=== PATIENT | female | born 1945 | race Caucasian/White ===

== ENCOUNTER 2022-03-24 10:02 | Inpatient (IN) | payer MEDICARE, SELFPAY ==
[2022-03-24] VITALS (18 sets, daily range): BP systolic 105–144; BP diastolic 41–86; PULSE 70–83; RESP 14–18; TEMP 36.6–37.3; O2SAT 92–99; BMI 28.3; BMI 29.4
--- NOTE | 2022-03-24 10:55 | CRLHL7_ITS ---
For Patients: As a result of the Cures Act, medical imaging exams and procedure reports are released immediately into your electronic medical record. You may view this report before your referring provider. If you have questions, please contact your health care provider. INDICATION: Right lower quadrant pain x2 days, nausea and vomiting TECHNIQUE: CT abdomen and pelvis acquired with IV contrast 76 cc Isovue 370 COMPARISON: None FINDINGS: Lower chest: Small hiatal hernia. Liver: Unremarkable. Spleen: Unremarkable. Pancreas: Unremarkable. Gallbladder and bile ducts: Unremarkable. Kidneys: 2.5 centimeter right renal cyst. Adrenal glands: Unremarkable. GI/bowel: Fluid-filled dilated appendix up to 8 millimeters with a thickened wall adjacent inflammatory stranding with thickening of the adjacent cecum. Findings consistent with acute appendicitis. Vascular structures: Unremarkable. Lymph nodes: Unremarkable. Miscellaneous: Unremarkable. No free air or significant free fluid. Pelvic Organs: Unremarkable. Bones: Degenerative changes thoracolumbar spine. IMPRESSION: Fluid-filled dilated appendix up to 3 millimeters with a thickened wall and adjacent inflammatory stranding with thickening of the adjacent cecum. Findings consistent with acute appendicitis. Small hiatal hernia. Dictated by Montana Velasco MD @ 03/24/2022 12:26:12 PM Please note that all CT scans at this facility use dose modulation, iterative reconstruction, and/or weight-based dosing when appropriate to reduce radiation dose to as low as reasonably achievable. Dictated by: Montana Velasco MD @ 03/24/2022 12:29:49 (Electronically Signed)
--- NOTE | 2022-03-24 10:57 | ED.ABDPAIN ---
HPI - Abdominal Pain General Chief Complaint: Abdominal Pain Stated Complaint: Abdominal pain, nausea Time Seen by Provider: 03/24/22 10:39 History of Present Illness HPI narrative: This 76-year-old female comes in reporting right lower quadrant abdominal pain that began 2 days ago. She states the pain is much worse today. She did have some nausea and vomiting throughout this time but does not have any diarrhea. She did not measure her temperature but wondered if she was febrile at one point. Prior to this she is in good health. She states that the pain is constant and worse with movement. She did not sleep well last night because of pain. Related Data Home Medications Medication Instructions Recorded Confirmed escitalopram oxalate 10 mg tablet mg 03/24/22 losartan 100 tab 03/24/22 mg-hydrochlorothiazide 12.5 mg tablet omeprazole 20 mg capsule,delayed mg 03/24/22 release simvastatin 20 mg tablet mg 03/24/22 Allergies Allergy/AdvReac Type Severity Reaction Status Date / Time avocado Allergy Verified 03/24/22 10:15 codeine Allergy Verified 03/24/22 10:15 cortisone Allergy Verified 03/24/22 10:15 erythromycin base Allergy Verified 03/24/22 10:15 penicillin G Allergy Verified 03/24/22 10:15 Sulfa (Sulfonamide Allergy Verified 03/24/22 10:15 Antibiotics) tetracycline Allergy Verified 03/24/22 10:15 Review of Systems Status of ROS Reports: 10 or more systems reviewed and unremarkable except as noted in History and below Narrative Constitutional: No fevers, no weight gain or loss. Eyes: No discharge. No vision changes. HENT: No congestion, no sore throat, no ear pain. Cardiovascular: No chest pain, no palpitations. Respiratory: No shortness of breath, no wheezes, no cough. Gastrointestinal: Abdominal pain with nausea and vomiting as described above. No diarrhea. Genitourinary: No dysuria, no hematuria. Musculoskeletal: Normal range of motion. Skin: No rashes, no pruritis. Neurological: No dizziness, weakness, sensory change, speech change. Endo/Heme/Allergies: No bruising or bleeding. No polydipsia. Pysch: no suicidality, no anxiety, no insomnia. All other systems reviewed and are negative. [facility] Medical History (Updated 03/24/22 @ 12:48 by Isael Mazariegos MD) Asthma Surgical History (Updated 03/24/22 @ 10:16 by Roberta Kuo RN) History of knee replacement Social History Smoking Status: Never smoker Do you use any of these nicotine containing products: None Second hand tobacco smoke exposure: No How often do you have a drink containing alcohol: monthly or less How many standard drinks containing alcohol do you have on a typical day: 1 or 2 How often do you have six or more drinks on one occasion: Less than monthly AUDIT-C Alcohol total score: 2 Non-prescribed substance use: denies use service: No Exam Narrative: Exam Narrative: Constitutional: Well-developed, well-nourished, no acute distress. HEENT: Normocephalic, atraumatic. Neck: Normal range of motion. Nontender. Supple. Heart: Regular. No murmurs. Normal rate. Intact distal pulses. Lungs: Clear to auscultation. No chest discomfort. No wheezes, rhonchi, or rales. Abdomen: Decreased bowel sounds. Tenderness focused in the right lower quadrant. Rovsing sign is positive. Rebound tenderness is present. Genitalia: Deferred. Back: No midline tenderness. Normal range of motion. Extremities: Normal range of motion. No injury. Skin: Intact. No rash. Warm. No erythema or pallor. Neurologic: No altered sensation. No weakness. Alert and oriented. Psychiatric: No suicidality. No anxiety or depression. No insomnia. Nursing notes and vitals signs are reviewed. Const: Vital Signs, click to edit/add: Vital Signs - 24 hr 03/24/22 10:08 Temperature 98.2 F Pulse Rate [Right Pulse Oximeter] 83 Respiratory Rate 18 Blood Pressure [Ri ght Upper Arm] 144/64 H Pulse Oximetry 98 Oxygen Delivery Me thod Room Air Course Vital Signs Vital signs: Initial Vital Signs Temperature 98.2 F 03/24/22 10:08 Temperature Source Temporal Artery Scan 03/24/22 10:08 Pulse Rate 83 03/24/22 10:08 Pulse Rhythm 03/24/22 10:08 Pulse Strength 3+ Normal 03/24/22 10:08 Respiratory Rate 18 03/24/22 10:08 Blood Pressure 144/64 H 03/24/22 10:08 Blood Pressure Mean 90 03/24/22 10:08 Blood Pressure Position Sitting 03/24/22 10:08 Pulse Oximetry 98 03/24/22 10:08 Oxygen Delivery Method 03/24/22 10:08 Vital Signs Temperature 98.2 F 03/24/22 10:08 Pulse Rate 83 03/24/22 10:08 Respiratory Rate 18 03/24/22 10:08 Blood Pressure 144/64 H 03/24/22 10:08 Pulse Oximetry 98 03/24/22 10:08 Oxygen Delivery Method 03/24/22 10:08 Temperature 98.2 F 03/24/22 10:08 Pulse Rate 83 03/24/22 10:08 Respiratory Rate 18 03/24/22 10:08 Blood Pressure 144/64 H 03/24/22 10:08 Pulse Oximetry 98 03/24/22 10:08 Oxygen Delivery Method 03/24/22 10:08 MDM - Abdominal Pain MDM Narrative Medical decision making narrative: This patient comes in with worsening pain as described above. The pain is in the abdomen and seems to be localized in the right lower quadrant. An IV was established where labs were drawn and the patient received a CT scan with contrast. This shows evidence of acute appendicitis. Her white count is around 14.5. The patient received an IV dose of Dilaudid which brought sufficient relief temporarily to her pain. Later another dose of Dilaudid was given. I did speak with the surgeon on-call, Dr. Santoro, who will make arrangements for appendectomy. The patient did receive an IV dose of ertapenem. Lab Data Labs: Lab Results 03/24/22 03/24/22 Range/Units 10:30 10:30 WBC 14.46 H (4.50-11.00) K/uL RBC 4.85 (4.00-5.20) m/uL Hgb 14.4 (12.0-16.0) gm/dL Hct 43.5 (33.0-51.0) % MCV 90 (80-100) fL MCH 30 (26-34) pg MCHC 33 (32-36) gm/dL RDW Coeff of Mark 13.5 (11.5-15.5) % Plt Count 259 (140-440) K/uL Neut % (Auto) 90.5 H (42.0-72.0) % Lymph % (Auto) 3.5 L (20-44) % [place] % (Auto) 5.7 (0.0-11.0) % Eos % (Auto) 0.0 (0.0-7.0) % Baso % (Auto) 0.1 (0.0-3.0) % Neut # (Auto) 13.10 H (1.7-7.0) K/uL Lymph # (Auto) 0.50 L (0.90-2.90) K/uL [place] # (Auto) 0.80 (0.00-0.90) K/UL Eos # (Auto) 0.00 (0.00-0.50) K/uL Baso # (Auto) 0.00 (0.00-0.30) K/uL Abs Immat Gran (auto) 0.03 (0.00-0.30) K/uL Sodium 134 L (135-149) mmol/L Potassium 3.6 (3.6-5.1) mmol/L Chloride 96 (96-114) mmol/L Carbon Dioxide 28 (20-32) mmol/L BUN 21 (7-30) mg/dL Creatinine 0.7 (0.5-1.5) mg/dL Estimated Creat Clear 38.44 Estimated GFR 90 ml/min Glucose 174 H (60-115) mg/dL Calcium 9.5 (8.4-10.6) mg/dL Total Bilirubin 2.0 H (0.1-1.5) mg/dL Direct Bilirubin 0.3 (0.0-0.5) mg/dL AST 32 (12-35) U/L ALT 59 H (4-35) U/L Alkaline Phosphatase 83 (40-150) U/L Total Protein 7.7 (6.0-8.3) g/dL Albumin 4.7 (3.3-5.0) g/dL Lipase 66 (23-300) U/L Imaging Data CT scan - abdomen: Radiologist's impression: Fluid-filled dilated appendix up to 3 millimeters with a thickened wall and adjacent inflammatory stranding with thickening of the adjacent cecum. Findings consistent with acute appendicitis. Small hiatal hernia. Discharge Plan Discharge Clinical Impression: Acute appendicitis Patient Disposition: Admitted As Inpatient Condition: Unchanged Prescriptions: No Action simvastatin 20 mg tablet Label Comments: TAKE ONE TABLET BY MOUTH AT BEDTIME omeprazole 20 mg capsule,delayed release(DR/EC) Label Comments: TAKE ONE TABLET BY MOUTH IN THE EVENING escitalopram oxalate 10 mg tablet Label Comments: TAKE 1 TABLET BY MOUTH EVERY DAY losartan-hydrochlorothiazide 100-12.5 mg tablet Label Comments: TAKE 1 TABLET BY MOUTH EVERY DAY Follow Up/Referrals: Mariangel Ly MD [Primary Care Provider] -
[2022-03-24] MEDS: HYDROmorphone 0.5 mg/0.5 ml inj IVP ×2 (11:02→13:13)
[2022-03-24] MEDS: ONDANSETRON 2 MG/ML inj 4 MG IVP (11:02)
[2022-03-24 11:04] LABS: Basophils Percent Auto 0.1 % (0.0-3.0); Hematocrit 43.5 % (33.0-51.0); Hemoglobin* 14.4 gm/dL (12.0-16.0); Immature Granulocytes Abs Auto 0.03 K/uL (0.00-0.30); Lymphocytes Percent Auto 3.5 % (20-44); Mean Corpuscular HGB Conc 33 gm/dL (32-36); Mean Corpuscular Hemoglobin 30 pg (26-34); Mean Corpuscular Volume 90 fL (80-100); Monocytes Percent Auto 5.7 % (0.0-11.0); Neutrophils Percent Auto 90.5 % (42.0-72.0); Platelet Count* 259 K/uL (140-440); RDW Coefficient of Variation % 13.5 % (11.5-15.5); Red Blood Count 4.85 m/uL (4.00-5.20); White Blood Count* 14.46 K/uL (4.50-11.00)
[2022-03-24 11:16] LABS: Albumin* 4.7 g/dL (3.3-5.0)
[2022-03-24 11:17] LABS: Chloride* 96 mmol/L (96-114); Potassium* 3.6 mmol/L (3.6-5.1); Sodium* 134 mmol/L (135-149)
[2022-03-24 11:19] LABS: Aspartate Amino Transferase* 32 U/L (12-35); Bilirubin Direct* 0.3 mg/dL (0.0-0.5); Carbon Dioxide* 28 mmol/L (20-32); Creatinine* 0.7 mg/dL (0.5-1.5); Est. Creatinine Clearance* 38.44; Estimated Glomerular Filt Rate 90 ml/min; Slide Review Reflex No; Total Protein* 7.7 g/dL (6.0-8.3)
[2022-03-24 11:20] LABS: Alanine Aminotransferase* 59 U/L (4-35); Alkaline Phosphatase* 83 U/L (40-150); Blood Urea Nitrogen* 21 mg/dL (7-30); Calcium* 9.5 mg/dL (8.4-10.6); Glucose* 174 mg/dL (60-115); Lipase* 66 U/L (23-300)
[2022-03-24 12:44] LABS: Appearance Urine Clear (Clear); Bilirubin Urine Negative (Negative); Blood Urine 1+ (Negative); Color Urine Yellow (Yellow); Glucose Urine Negative (Negative); Ketones Urine Negative (Negative); Leukocyte Esterase Urine Negative (Negative); Nitrite Urine Negative (Negative); Protein Urine Negative (Negative); Urobilinogen Urine 0.2 (0.2-1.0); pH Urine 6.5 (5.0-8.5)
--- NOTE | 2022-03-24 12:45 | ED.ABDPAIN ---
HPI - Abdominal Pain General Chief Complaint: Abdominal Pain Stated Complaint: Abdominal pain, nausea Time Seen by Provider: 03/24/22 10:39 Related Data Home Medications Medication Instructions Recorded Confirmed escitalopram oxalate 10 mg tablet mg 03/24/22 losartan 100 tab 03/24/22 mg-hydrochlorothiazide 12.5 mg tablet omeprazole 20 mg capsule,delayed mg 03/24/22 release simvastatin 20 mg tablet mg 03/24/22 Allergies Allergy/AdvReac Type Severity Reaction Status Date / Time avocado Allergy Verified 03/24/22 10:15 codeine Allergy Verified 03/24/22 10:15 cortisone Allergy Verified 03/24/22 10:15 erythromycin base Allergy Verified 03/24/22 10:15 penicillin G Allergy Verified 03/24/22 10:15 Sulfa (Sulfonamide Allergy Verified 03/24/22 10:15 Antibiotics) tetracycline Allergy Verified 03/24/22 10:15 [facility] Medical History (Updated 03/24/22 @ 12:48 by Isael Mazariegos MD) Asthma Surgical History (Updated 03/24/22 @ 10:16 by Roberta Kuo RN) History of knee replacement Social History Smoking Status: Never smoker Do you use any of these nicotine containing products: None Second hand tobacco smoke exposure: No How often do you have a drink containing alcohol: monthly or less How many standard drinks containing alcohol do you have on a typical day: 1 or 2 How often do you have six or more drinks on one occasion: Less than monthly AUDIT-C Alcohol total score: 2 Non-prescribed substance use: denies use service: No Exam Const: Vital Signs, click to edit/add: Vital Signs - 24 hr 03/24/22 10:08 Temperature 98.2 F Pulse Rate [Right Pulse Oximeter] 83 Respiratory Rate 18 Blood Pressure [Ri ght Upper Arm] 144/64 H Pulse Oximetry 98 Oxygen Delivery Me thod Room Air Course Vital Signs Vital signs: Initial Vital Signs Temperature 98.2 F 03/24/22 10:08 Temperature Source Temporal Artery Scan 03/24/22 10:08 Pulse Rate 83 03/24/22 10:08 Pulse Rhythm 03/24/22 10:08 Pulse Strength 3+ Normal 03/24/22 10:08 Respiratory Rate 18 03/24/22 10:08 Blood Pressure 144/64 H 03/24/22 10:08 Blood Pressure Mean 90 03/24/22 10:08 Blood Pressure Position Sitting 03/24/22 10:08 Pulse Oximetry 98 03/24/22 10:08 Oxygen Delivery Method 03/24/22 10:08 Vital Signs Temperature 98.2 F 03/24/22 10:08 Pulse Rate 83 03/24/22 10:08 Respiratory Rate 18 03/24/22 10:08 Blood Pressure 144/64 H 03/24/22 10:08 Pulse Oximetry 98 03/24/22 10:08 Oxygen Delivery Method 03/24/22 10:08 Temperature 98.2 F 03/24/22 10:08 Pulse Rate 83 03/24/22 10:08 Respiratory Rate 18 03/24/22 10:08 Blood Pressure 144/64 H 03/24/22 10:08 Pulse Oximetry 98 03/24/22 10:08 Oxygen Delivery Method 03/24/22 10:08 MDM - Abdominal Pain Lab Data Labs: Lab Results 03/24/22 03/24/22 03/24/22 Range/Units 10:30 10:30 12:19 WBC 14.46 H (4.50-11.00) K/uL RBC 4.85 (4.00-5.20) m/uL Hgb 14.4 (12.0-16.0) gm/dL Hct 43.5 (33.0-51.0) % MCV 90 (80-100) fL MCH 30 (26-34) pg MCHC 33 (32-36) gm/dL RDW Coeff of Mark 13.5 (11.5-15.5) % Plt Count 259 (140-440) K/uL Neut % (Auto) 90.5 H (42.0-72.0) % Lymph % (Auto) 3.5 L (20-44) % [place] % (Auto) 5.7 (0.0-11.0) % Eos % (Auto) 0.0 (0.0-7.0) % Baso % (Auto) 0.1 (0.0-3.0) % Neut # (Auto) 13.10 H (1.7-7.0) K/uL Lymph # (Auto) 0.50 L (0.90-2.90) K/uL [place] # (Auto) 0.80 (0.00-0.90) K/UL Eos # (Auto) 0.00 (0.00-0.50) K/uL Baso # (Auto) 0.00 (0.00-0.30) K/uL Abs Immat Gran (auto) 0.03 (0.00-0.30) K/uL Sodium 134 L (135-149) mmol/L Potassium 3.6 (3.6-5.1) mmol/L Chloride 96 (96-114) mmol/L Carbon Dioxide 28 (20-32) mmol/L BUN 21 (7-30) mg/dL Creatinine 0.7 (0.5-1.5) mg/dL Estimated Creat Clear 38.44 Estimated GFR 90 ml/min Glucose 174 H (60-115) mg/dL Calcium 9.5 (8.4-10.6) mg/dL Total Bilirubin 2.0 H (0.1-1.5) mg/dL Direct Bilirubin 0.3 (0.0-0.5) mg/dL AST 32 (12-35) U/L ALT 59 H (4-35) U/L Alkaline Phosphatase 83 (40-150) U/L Total Protein 7.7 (6.0-8.3) g/dL Albumin 4.7 (3.3-5.0) g/dL Lipase 66 (23-300) U/L Urine Color Yellow (Yellow) Urine Appearance Clear (Clear) Urine pH 6.5 (5.0-8.5) Ur Specific [place] 1.020 (1.000-1.030) Urine Protein Negative (Negative) Urine Glucose (UA) Negative (Negative) Urine Ketones Negative (Negative) Urine Blood 1+ A (Negative) Urine Nitrite Negative (Negative) Urine Bilirubin Negative (Negative) Urine Urobilinogen 0.2 (0.2-1.0) Ur Leukocyte Esterase Negative (Negative) Urine RBC 0-2 (0-2) Urine WBC 0-2 (0-5) Ur Squamous Epith Cells None (None-Few) Urine Bacteria None (None) SARS-CoV-2 (PCR) (Negative) 03/24/22 Range/Units 12:36 WBC (4.50-11.00) K/uL RBC (4.00-5.20) m/uL Hgb (12.0-16.0) gm/dL Hct (33.0-51.0) % MCV (80-100) fL MCH (26-34) pg MCHC (32-36) gm/dL RDW Coeff of Mark (11.5-15.5) % Plt Count (140-440) K/uL Neut % (Auto) (42.0-72.0) % Lymph % (Auto) (20-44) % [place] % (Auto) (0.0-11.0) % Eos % (Auto) (0.0-7.0) % Baso % (Auto) (0.0-3.0) % Neut # (Auto) (1.7-7.0) K/uL Lymph # (Auto) (0.90-2.90) K/uL [place] # (Auto) (0.00-0.90) K/UL Eos # (Auto) (0.00-0.50) K/uL Baso # (Auto) (0.00-0.30) K/uL Abs Immat Gran (auto) (0.00-0.30) K/uL Sodium (135-149) mmol/L Potassium (3.6-5.1) mmol/L Chloride (96-114) mmol/L Carbon Dioxide (20-32) mmol/L BUN (7-30) mg/dL Creatinine (0.5-1.5) mg/dL Estimated Creat Clear Estimated GFR ml/min Glucose (60-115) mg/dL Calcium (8.4-10.6) mg/dL Total Bilirubin (0.1-1.5) mg/dL Direct Bilirubin (0.0-0.5) mg/dL AST (12-35) U/L ALT (4-35) U/L Alkaline Phosphatase (40-150) U/L Total Protein (6.0-8.3) g/dL Albumin (3.3-5.0) g/dL Lipase (23-300) U/L Urine Color (Yellow) Urine Appearance (Clear) Urine pH (5.0-8.5) Ur Specific [place] (1.000-1.030) Urine Protein (Negative) Urine Glucose (UA) (Negative) Urine Ketones (Negative) Urine Blood (Negative) Urine Nitrite (Negative) Urine Bilirubin (Negative) Urine Urobilinogen (0.2-1.0) Ur Leukocyte Esterase (Negative) Urine RBC (0-2) Urine WBC (0-5) Ur Squamous Epith Cells (None-Few) Urine Bacteria (None) SARS-CoV-2 (PCR) Negative SARS-CoV-2 (Negative) ECG Data Attestation: I personally reviewed and interpreted this ECG as follows: Interpretation: Normal sinus rhythm. Right bundle branch block. Rate 77 beats per minute. There are no ST or T-wave abnormalities. Discharge Plan Discharge Clinical Impression: Acute appendicitis Patient Disposition: Admitted As Inpatient Condition: Unchanged
--- NOTE | 2022-03-24 12:46 | W.PC.EDHO ---
Primary Language: Preferred Language: Orientation Status: [x] Alert & Oriented [] Slight Confusion [] Known Dx Dementia Transfers By: [x] Assist of 1 [] Assist of 2 [] Lift Active Medications Discontinued Medications Generic Name Dose Route Start Last Admin Trade Name Darcy PRN Reason Stop Dose Admin Hydromorphone HCl 0.5 mg 03/24/22 10:54 03/24/22 11:02 Hydromorphone 0.5 Mg/0.5 Ml Inj IVP 03/24/22 10:55 0.5 mg ONCE ONE Administration Ondansetron HCl 4 mg 03/24/22 10:54 03/24/22 11:02 Ondansetron 2 Mg/Ml Inj IVP 03/24/22 10:55 4 mg ONCE ONE Administration Description of Symptoms ED Triage Present Problem Here with abd pain started Tuesday at 4am has Description become worse. Reports burning and now severe pain on the right side. Nothing make it better. Female History Patient Pain Pain Description [abd] Sharp Pain Intensity [abd] 10 Pain Scale Used [abd] Numeric (1 - 10) IV Insertion/Site Date of IV Line Insertion [ 03/24/22 Left Antecubital] Oxygen Administration Pulse Oximetry 98 Oxygen Delivery Method Room Air
[2022-03-24 13:00] LABS: RBC Urine 0-2 (0-2); WBC Urine 0-2 (0-5)
[2022-03-24] MEDS: ERTAPENEM 1 GM in 0.9 % SODIUM CHLORIDE Mini-bag 100 ML IVPB (13:13)
[2022-03-24 13:38] LABS: SARS PCR* Negative SARS-CoV-2 (Negative)
--- NOTE | 2022-03-24 14:08 | P.GSCN_ITS ---
History of Present Illness Consult details Date Seen: 03/24/22 Consult date: 03/24/22 Narrative: The patient is a 76-year-old female who presents to the emergency department today with severe right lower quadrant pain. She states that she woke up at 4:00 a.m. 2 days ago with severe pain in her right lower abdomen. She states that her stomach ballooned up and the pain became more severe. Nothing makes the pain better but movement and the car ride here made it worse. With this she has had some loose stools as well as vomiting. She has not had a fever. She has no urinary symptoms. No chest pain or shortness of breath. She has never had anything like this previously. She has not eaten today. Review of Systems Status of ROS: Reports: 10 or more systems reviewed and unremarkable except as noted in History and below 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 She lives with her . Smoking Status: Never smoker Do you use any of these nicotine containing products: None Second hand tobacco smoke exposure: No How often do you have a drink containing alcohol: monthly or less How many standard drinks containing alcohol do you have on a typical day: 1 or 2 How often do you have six or more drinks on one occasion: Less than monthly AUDIT-C Alcohol total score: 2 Non-prescribed substance use: denies use service: No Meds Home Medications and Allergies Home Medications Medication Instructions Recorded Confirmed Type escitalopram oxalate 10 mg tablet mg 03/24/22 History losartan 100 tab 03/24/22 History mg-hydrochlorothiazide 12.5 mg tablet omeprazole 20 mg capsule,delayed mg 03/24/22 History release simvastatin 20 mg tablet mg 03/24/22 History Allergies Allergy/AdvReac Type Severity Reaction Status Date / Time avocado Allergy Verified 03/24/22 10:15 codeine Allergy Verified 03/24/22 10:15 cortisone Allergy Verified 03/24/22 10:15 erythromycin base Allergy Verified 03/24/22 10:15 penicillin G Allergy Verified 03/24/22 10:15 Sulfa (Sulfonamide Allergy Verified 03/24/22 10:15 Antibiotics) tetracycline Allergy Verified 03/24/22 10:15 Exam Narrative: Exam Narrative: General appearance: Alert, cooperative, and in no distress Eyes: PERRLA, eye lids clear, and sclera white HENT Head: Normocephalic Ears: External ears normal Pulmonary: Clear to auscultation bilaterally Cardiovascular Heart: Regular rate and rhythm Extremities: warm and well perfused Gastrointestinal Abdominal: No scars. Somewhat distended. Tender on the right abdomen with significant guarding in the right lower quadrant. Musculoskeletal: Extremities: Upper: Both upper extremities have normal joint range of motion and intact strength. Lower: Both lower extremities have normal joint range of motion and intact strength. Skin: Normal skin color, texture, and turgor. No rashes or lesions. Neurologic: No focal deficits Psychiatric: Alert, oriented, cooperative, normal affect. Const: Vital Signs, click to edit/add: Vital Signs - 24 hr 03/24/22 10:08 Temperature 98.2 F Pulse Rate [Right Pulse Oximeter] 83 Respiratory Rate 18 Blood Pressure [Ri ght Upper Arm] 144/64 H Pulse Oximetry 98 Oxygen Delivery Me thod Room Air Results Labs Labs: Abnormal lab results 03/24/22 03/24/22 03/24/22 Range/Units 10:30 10:30 12:19 WBC 14.46 H (4.50-11.00) K/uL Neut % (Auto) 90.5 H (42.0-72.0) % Lymph % (Auto) 3.5 L (20-44) % Neut # (Auto) 13.10 H (1.7-7.0) K/uL Lymph # (Auto) 0.50 L (0.90-2.90) K/uL Sodium 134 L (135-149) mmol/L Glucose 174 H (60-115) mg/dL Total Bilirubin 2.0 H (0.1-1.5) mg/dL ALT 59 H (4-35) U/L Urine Blood 1+ A (Negative) Diabetes panel 03/24/22 Range/Units 10:30 Sodium 134 L (135-149) mmol/L Potassium 3.6 (3.6-5.1) mmol/L Chloride 96 (96-114) mmol/L Carbon Dioxide 28 (20-32) mmol/L BUN 21 (7-30) mg/dL Creatinine 0.7 (0.5-1.5) mg/dL Glucose 174 H (60-115) mg/dL Calcium 9.5 (8.4-10.6) mg/dL AST 32 (12-35) U/L ALT 59 H (4-35) U/L Alkaline Phosphatase 83 (40-150) U/L Total Protein 7.7 (6.0-8.3) g/dL Albumin 4.7 (3.3-5.0) g/dL Calcium panel 03/24/22 Range/Units 10:30 Calcium 9.5 (8.4-10.6) mg/dL Albumin 4.7 (3.3-5.0) g/dL Pituitary panel 03/24/22 Range/Units 10:30 Sodium 134 L (135-149) mmol/L Potassium 3.6 (3.6-5.1) mmol/L Chloride 96 (96-114) mmol/L Carbon Dioxide 28 (20-32) mmol/L BUN 21 (7-30) mg/dL Creatinine 0.7 (0.5-1.5) mg/dL Glucose 174 H (60-115) mg/dL Calcium 9.5 (8.4-10.6) mg/dL Adrenal panel 03/24/22 Range/Units 10:30 Sodium 134 L (135-149) mmol/L Potassium 3.6 (3.6-5.1) mmol/L Chloride 96 (96-114) mmol/L Carbon Dioxide 28 (20-32) mmol/L BUN 21 (7-30) mg/dL Creatinine 0.7 (0.5-1.5) mg/dL Glucose 174 H (60-115) mg/dL Calcium 9.5 (8.4-10.6) mg/dL Total Bilirubin 2.0 H (0.1-1.5) mg/dL AST 32 (12-35) U/L ALT 59 H (4-35) U/L Alkaline Phosphatase 83 (40-150) U/L Total Protein 7.7 (6.0-8.3) g/dL Albumin 4.7 (3.3-5.0) g/dL All other labs normal. Imaging Abdomen CT scan report/results: report reviewed (Diagnostic Imaging Report Patient: Nicole Vásquez LMR#: [id number]: 7Acct:[id number]: EDService Date: 03/24/22Attending Dr: Ordering Physician: Isael Mazariegos M.D. Date of Service: 03/24/22 Procedure(s): CT abdomen pelvis w con Accession Number(s): [id number] cc: Yair) and image reviewed EKG: report reviewed and image reviewed (Normal sinus rhythm with right bundle- branch block) Assessment and Plan Assessment and plan (1) Acute appendicitis: Status: Acute (2) Hiatal hernia: Status: Acute (3) Hypertension: Status: Acute (4) Hyperlipidemia: Status: Acute Plan The patient is a 76-year-old female with acute appendicitis. We discussed that appendectomy is the preferred treatment for this. This can most often be done laparoscopically. We discussed risks and benefits of the procedure including but not limited to bleeding, need for conversion to open, risk of injury to other structures, need for possible bowel resection, and abscess formation. The patient understands that the risk of abscess is higher if the appendix is perforated. I am concerned based on the CT scan that there are few bubbles of air outside of the appendix. We will not know however until the time of surgery. For that reason, we generally keep patient is in the hospital on IV antibiotics until vital signs and white blood cell count had normalized. We also discussed recovery including 2 weeks of lifting restrictions. She is agreeable to proceed we will plan on surgery at the next OR availability.
[2022-03-24] MEDS: LACTATED RINGERS 1000 ML 1,000 ML 35 ML IV (15:23)
[2022-03-24] MEDS: SODIUM CHLORIDE 0.9 % (FLUSH) 10 ML SYRINGE IVF (15:23)
[2022-03-24] MEDS: CIPROFLOXACIN 400 MG/200 ML inj IVPB (15:23)
--- NOTE | 2022-03-24 16:16 | PM.IMHP1 ---
Hospitalist- H&P: HPI History of Present Illness Time Seen by Provider: 16:16 Date Seen: 03/24/22 Chief complaint: Abdominal pain, nausea Narrative: Nicole Vásquez is a 76 year old female who presents with a two day history of pain in her RLQ. The pain started out as quite mild but has progressed significantly over the last 12 hours. Pt presented to the ED today where a CT of the abd and pelvis showed acute appendicitis. White blood cell count also noted to be elevated. General surgery was contacted. The pt was made NPO. She received IV Cipro and Ertepenum in the ED and will be proceeding to surgery this afternoon for appendectomy. Pt is now resting comfortably. 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 She lives with her . Smoking Status: Never smoker Do you use any of these nicotine containing products: None Second hand tobacco smoke exposure: No How often do you have a drink containing alcohol: monthly or less How many standard drinks containing alcohol do you have on a typical day: 1 or 2 How often do you have six or more drinks on one occasion: Less than monthly AUDIT-C Alcohol total score: 2 Non-prescribed substance use: denies use service: No Meds Home Medications and Allergies Home Medications Medication Instructions Recorded Confirmed Type escitalopram oxalate 10 mg tablet 10 mg PO DAILY 03/24/22 03/24/22 History losartan 100 1 tab PO DAILY 03/24/22 03/24/22 History mg-hydrochlorothiazide 12.5 mg tablet omeprazole 20 mg capsule,delayed 20 mg PO HS 03/24/22 03/24/22 History release simvastatin 20 mg tablet 20 mg PO HS 03/24/22 03/24/22 History Home Medication Comments: Reviewed Allergies Allergy/AdvReac Type Severity Reaction Status Date / Time avocado Allergy Verified 03/24/22 10:15 codeine Allergy Verified 03/24/22 10:15 cortisone Allergy Verified 03/24/22 10:15 erythromycin base Allergy Verified 03/24/22 10:15 penicillin G Allergy Verified 03/24/22 10:15 Sulfa (Sulfonamide Allergy Verified 03/24/22 10:15 Antibiotics) tetracycline Allergy Verified 03/24/22 10:15 Exam Narrative: Exam Narrative: EXAM GENERAL: Patient appears comfortable and well. EYES: No scleral icterus. THYROID: no thyroid nodules or thyromegaly. LYMPH: No supraclavicular or cervical lymphadenopathy. SKIN: Visible skin seen during exam normal or with benign process only. EXT: No dependent lower extremity pedal edema. HEART: Regular rate and rhythm with no murmurs, rubs, or gallops. LUNGS: Clear to auscultation bilaterally with no crackles or wheezes. ABD: Mild peritonitis with tenderness localized to the RLQ. Hypoactive bowel sounds. PSYCH: Good eye contact, speech is not pressured. Const: Vital Signs, click to edit/add: Vital Signs - 24 hr 03/24/22 10:08 03/24/22 15:00 03/24/22 15:00 Temperature 98.2 F 99.2 F Pulse Rate [Right Pulse Oximeter] 83 70 Respiratory Rate 18 18 18 Blood Pressure [Ri ght Arm] 132/60 Blood Pressure [Ri ght Upper Arm] 144/64 H Pulse Oximetry 98 96 98 Oxygen Delivery Me thod Room Air Room Air Room Air Hospitalist - H&P: Result Labs Labs: Short CBC 03/24/22 Range/Units 10:30 WBC 14.46 H (4.50-11.00) K/uL Hgb 14.4 (12.0-16.0) gm/dL Hct 43.5 (33.0-51.0) % Plt Count 259 (140-440) K/uL BMP 03/24/22 10:30 Sodium 134 L Potassium 3.6 Chloride 96 Carbon Dioxide 28 BUN 21 Creatinine 0.7 Glucose 174 H Calcium 9.5 Liver Function 03/24/22 Range/Units 10:30 Total Bilirubin 2.0 H (0.1-1.5) mg/dL Direct Bilirubin 0.3 (0.0-0.5) mg/dL AST 32 (12-35) U/L ALT 59 H (4-35) U/L Alkaline Phosphatase 83 (40-150) U/L Albumin 4.7 (3.3-5.0) g/dL Urine 03/24/22 Range/Units 12:19 Urine Color Yellow (Yellow) Urine Appearance Clear (Clear) Urine pH 6.5 (5.0-8.5) Ur Specific [place] 1.020 (1.000-1.030) Urine Protein Negative (Negative) Urine Glucose (UA) Negative (Negative) ECG Attestation: I personally reviewed and interpreted this ECG as follows: (Normal sinus rhythm no acute ST or T wave changes.) Imaging CT scan - abdomen: Radiologist's impression: 3 mm Appendix with thickened wall and inflamatory stranding indicating acute appendicitis. Also noted was a small hiatile hernia Assessment and Plan Assessment and plan (1) Acute appendicitis: Status: Acute Assessment and Plan: Pt going to the operating room in the next few minutes. She is NPO. She is vitally stable. I did speek with general surgery who are fine with the initial dose of Ertapenum but will make further antibiotic decisions after surgery. Ordering CMP and CBC in the am. Pt is to be a full code. DVT prophylaxis per surgery post op. (2) Hiatal hernia: Status: Chronic Assessment and Plan: This may be contributing to her chronic gerd. Will continue Omeprazole. (3) Chronic GERD: Status: Chronic Assessment and Plan: Will continue Omeprazole (4) Hyperlipidemia: Status: Acute Assessment and Plan: Continue Simvastatin (5) Hypertension: Status: Chronic Assessment and Plan: Reevaluate blood pressure response to surgery before continuing outpt Losartan-HCTZ which she did take earlier today. (6) Anxiety: Status: Acute Assessment and Plan: Continue Escitalopram 10 mg daily (7) Abnormal LFTs: Status: Chronic Assessment and Plan: Pt has had a borderline ALT in the past but Bilirubin has been normal. Will repeat CMP in the am.
[2022-03-24] MEDS: BUPIVACAINE 0.5% 30 ML INJECTION (18:31)
--- NOTE | 2022-03-24 18:58 | PM.GSPRC ---
Operative Note Date of procedure: 03/24/22 Type of Procedure: Laparoscopic appendectomy Procedure Description: After discussing the risks and benefits of the procedure, the patient signed informed consent.? The operative site was marked and the patient was brought to the operating room and placed on the operating table in supine position.? Care was taken to pad the patient's pressure points.?? The patient was then intubated by anesthesia.?? The operative site was then prepped and draped in the usual sterile fashion.? A time-out was then performed. Entrance to the abdomen was obtained via a 5 mm optical trocar in the left upper quadrant. The abdomen was insufflated and briefly surveyed for any signs of injury. There were none. A 12 mm port was placed inferior to the umbilicus as well as a 5 mm port in the left lower quadrant. Both were done under direct vision. The patient was then placed in Trendelenburg position with the right side up. There was an inflammatory mass noted in the right lower quadrant with purulence. This was gently peeled away from the abdominal wall bluntly and there was a walled-off area of inflammation with purulence. This was suctioned from the abdomen using a suction maintenance shop welder to prevent gross spillage. The appendix was in view. This was grasped and easily pulled into view, from the abscess cavity on the cecum. There was a perforation in the appendix. The appendiceal base was soft and visible. A mesenteric window was created between the base of the appendix and the mesoappendix. An Endo-DOMINIK purple load stapler was then used to transect the appendix at its base. The LigaSure was then used to divide the mesoappendix. The staple lines were inspected for bleeding. There was none. The appendix was then removed from the abdomen using an Endo-Catch bag. The specimen was sent to pathology. The abdomen was then examined. The purulent fluid all seem contained in the area of the appendix. This was carefully suctioned. The abscess cavity where the appendix was sitting on the cecum was examined. A small amount of purulence here was removed. There was no gross stool spillage noted. I then removed the left lower quadrant 5 mm port and placed this in the right mid abdomen. Through this I was able to pass a 19 Frisian Lawrence drain. I secured this in place at the skin with 2-0 nylon. I then placed the drain in the right lower quadrant and specifically in the area of the abscess cavity and desufflated the abdomen while ensuring the drains stayed in place. The remaining ports were then removed. The 12 mm port site fascia was closed with 0 Vicryl. The skin was then closed with absorbable subcuticular suture. Sterile dressings were then applied. Instrument sponge and needle counts were correct at the end of the case. The patient was then woken and transported to the PACU in stable condition. ? The patient tolerated the procedure well. Findings: Perforated appendicitis with localized peritonitis and abscess cavity. Anesthesia: GETA Surgeon: Pilar Santoro MD Estimated blood loss (mL): 5 Condition: stable Disposition: PACU
--- NOTE | 2022-03-24 19:11 | W.ANESCHARGE ---
Anesthesia Charges Start Date/Time Anesthesia Start Date: 03/24/22 Anesthesia Start Time: 17:41 Stop Date/Time Anesthesia Stop Date: 03/24/22 Anesthesia Stop Time: 18:53 Summary Emergency: Yes Extremes of Age: Over 71-CPT 21715
[2022-03-24] MEDS: LACTATED RINGERS 1000 ML 1,000 ML 125 ML IV (19:47)
[2022-03-24] MEDS: OMEPRAZOLE 20 MG CAPSULE DR PO (21:10)
[2022-03-24] MEDS: metroNIDAZOLE 500 MG/100 ML PIGGYBACK IVPB (21:10)
[2022-03-24] MEDS: SIMVASTATIN 20 MG TABLET PO (21:10)
[2022-03-24] MEDS: TRAMADOL HCL 50 MG TABLET PO (22:16)
[2022-03-24] MEDS: ACETAMINOPHEN 325 MG TABLET 650 MG PO (23:42)
[2022-03-25] VITALS (10 sets, daily range): BP systolic 105–120; BP diastolic 51–64; PULSE 64–82; RESP 16; TEMP 36.3–36.6; O2SAT 87–98
[2022-03-25] MEDS: CIPROFLOXACIN 400 MG/200 ML inj IVPB ×2 (02:58→15:00)
[2022-03-25] MEDS: metroNIDAZOLE 500 MG/100 ML PIGGYBACK IVPB ×3 (05:25→21:04)
[2022-03-25] MEDS: LACTATED RINGERS 1000 ML 1,000 ML 125 ML IV ×2 (05:26→17:19)
[2022-03-25] MEDS: ONDANSETRON 2 MG/ML inj IVP (05:49)
[2022-03-25 07:00] LABS: Basophils Percent Auto 0.2 % (0.0-3.0); Hematocrit 36.1 % (33.0-51.0); Hemoglobin* 11.7 gm/dL (12.0-16.0); Immature Granulocytes Abs Auto 0.02 K/uL (0.00-0.30); Lymphocytes Percent Auto 7.5 % (20-44); Mean Corpuscular HGB Conc 32 gm/dL (32-36); Mean Corpuscular Hemoglobin 29 pg (26-34); Mean Corpuscular Volume 91 fL (80-100); Monocytes Percent Auto 6.7 % (0.0-11.0); Neutrophils Percent Auto 85.4 % (42.0-72.0); Platelet Count* 212 K/uL (140-440); RDW Coefficient of Variation % 13.5 % (11.5-15.5); Red Blood Count 3.98 m/uL (4.00-5.20); White Blood Count* 12.33 K/uL (4.50-11.00)
[2022-03-25 07:12] LABS: Slide Review Reflex No
[2022-03-25 07:26] LABS: Albumin* 3.5 g/dL (3.3-5.0); Chloride* 98 mmol/L (96-114)
[2022-03-25 07:27] LABS: Potassium* 3.6 mmol/L (3.6-5.1); Sodium* 132 mmol/L (135-149)
[2022-03-25 07:29] LABS: Creatinine* 0.7 mg/dL (0.5-1.5); Est. Creatinine Clearance* 38.44; Estimated Glomerular Filt Rate 90 ml/min
[2022-03-25 07:30] LABS: Alanine Aminotransferase* 22 U/L (4-35); Alkaline Phosphatase* 80 U/L (40-150); Aspartate Amino Transferase* 18 U/L (12-35); Bilirubin Total* 1.5 mg/dL (0.1-1.5); Blood Urea Nitrogen* 15 mg/dL (7-30); Calcium* 8.4 mg/dL (8.4-10.6); Carbon Dioxide* 27 mmol/L (20-32); Glucose* 133 mg/dL (60-115); Total Protein* 6.1 g/dL (6.0-8.3)
--- NOTE | 2022-03-25 07:35 | PC.NURSE ---
19-: pleasant and cooperative. SBA. 3 lap sites, steri strips intact, no drainage. RADHA draining serosanguineous fluid, 90mL out overnight.?Dressing around RDAHA drain = CDI. c/o pain in abd 4-5/10, Ultram and Tylenol given, pt states relief. Soft BPs throughout shift. Pt had nausea early this AM, Zofran given with relief.
[2022-03-25 07:46] LABS: C Reactive Protein* 22.8 mg/dL (0.5-1.0)
[2022-03-25] MEDS: ESCITALOPRAM 10 MG TABLET PO (08:57)
[2022-03-25] MEDS: hydroCHLOROthiazide 12.5 MG CAPSULE PO (08:57)
[2022-03-25] MEDS: ENOXAPARIN 40 MG/0.4 ML INJ SUBCUT (08:58)
[2022-03-25] MEDS: LOSARTAN POTASSIUM 50 MG TABLET 100 MG PO (08:58)
[2022-03-25] MEDS: TRAMADOL HCL 50 MG TABLET PO ×3 (09:05→19:47)
--- NOTE | 2022-03-25 13:07 | PM.GSPN ---
Subjective Subjective Date Seen: 03/25/22 Interval history: Nicole feels that she is doing well. She stated she had a bit of nausea when she stood up.. She does have some pain in the right lower quadrant as well as at the umbilicus. No flatus. Abdomen is somewhat distended Exam Narrative: Exam Narrative: General: No acute distress CV: Regular rate and rhythm Respiratory: Clear bilaterally Abdomen: Distended. Incisions are clean and dry. Drain with serous output. Abdomen is somewhat tender but appropriate for the postoperative state. Const: Vital Signs, click to edit/add: Vital Signs - 24 hr 03/24/22 15:00 03/24/22 15:00 03/24/22 18:49 Temperature 99.2 F 99.1 F Pulse Rate 78 Pulse Rate [Right Pulse Oximeter] 70 Respiratory Rate 18 18 16 Blood Pressure 143/86 H Blood Pressure [Ri ght Arm] 132/60 Pulse Oximetry 96 98 98 Oxygen Delivery Me thod Room Air Room Air Nasal Cannula Oxygen Flow Rate 2 03/24/22 18:55 03/24/22 19:00 03/24/22 19:05 Temperature Pulse Rate 79 78 78 Pulse Rate [Right Pulse Oximeter] Respiratory Rate 16 16 16 Blood Pressure 134/41 L 143/54 H 140/65 H Blood Pressure [Ri ght Arm] Pulse Oximetry 99 99 98 Oxygen Delivery Me thod Room Air Oxygen Flow Rate 03/24/22 19:10 03/24/22 19:15 03/24/22 19:20 Temperature Pulse Rate 76 78 75 Pulse Rate [Right Pulse Oximeter] Respiratory Rate 14 14 14 Blood Pressure 138/55 L 131/65 122/61 Blood Pressure [Ri ght Arm] Pulse Oximetry 95 97 92 Oxygen Delivery Me thod Oxygen Flow Rate 03/24/22 19:30 03/24/22 19:45 03/24/22 20:00 Temperature 98.3 F 97.9 F 98.5 F Pulse Rate Pulse Rate [Right Pulse Oximeter] 71 70 76 Respiratory Rate 14 14 16 Blood Pressure Blood Pressure [Ri ght Arm] 122/46 L 105/55 L 114/51 L Pulse Oximetry 95 95 95 Oxygen Delivery Me thod Room Air Nasal Cannula Nasal Cannula Oxygen Flow Rate 1 1 1 03/24/22 20:30 03/24/22 21:00 03/24/22 16:38 Temperature Pulse Rate 77 Pulse Rate [Right Pulse Oximeter] 70 78 Respiratory Rate 16 16 Blood Pressure Blood Pressure [Ri ght Arm] 110/44 L 106/46 L Pulse Oximetry 95 94 Oxygen Delivery Me thod Nasal Cannula Nasal Cannula Oxygen Flow Rate 1 1 03/24/22 21:30 03/24/22 22:00 03/24/22 23:00 Temperature 98.2 F Pulse Rate Pulse Rate [Right Pulse Oximeter] 81 81 81 Respiratory Rate 16 16 16 Blood Pressure Blood Pressure [Ri ght Arm] 106/44 L 117/51 L 130/53 L Pulse Oximetry 94 94 93 Oxygen Delivery Me thod Nasal Cannula Nasal Cannula Nasal Cannula Oxygen Flow Rate 1 1 1 03/25/22 00:00 03/25/22 01:00 03/24/22 23:00 Temperature 98 F Pulse Rate Pulse Rate [Right Pulse Oximeter] 82 82 76 Respiratory Rate 16 16 16 Blood Pressure Blood Pressure [Ri ght Arm] 118/57 L 106/51 L Pulse Oximetry 95 95 Oxygen Delivery Me thod Nasal Cannula Nasal Cannula Oxygen Flow Rate 1 1 03/25/22 03:00 03/25/22 08:38 03/25/22 11:22 Temperature 97.8 F 98 F 97.6 F Pulse Rate Pulse Rate [Right Pulse Oximeter] 77 66 74 Respiratory Rate 16 16 16 Blood Pressure Blood Pressure [Ri ght Arm] 105/52 L 120/59 L 105/57 L Pulse Oximetry 95 98 95 Oxygen Delivery Me thod Nasal Cannula Room Air Room Air Oxygen Flow Rate 1 Labs/Imaging Labs Labs: White blood cell count is down slightly at 12. CRP is markedly elevated at 22. Hemoglobin is 11.7 from 14 on admission Progress Note: A&P Assessment and plan (1) Anxiety: Status: Acute (2) Hypertension: Status: Chronic (3) Hyperlipidemia: Status: Acute (4) Acute appendicitis: Status: Acute (5) S/P laparoscopic appendectomy: Status: Acute Plan The patient is a 76-year-old female status post laparoscopic appendectomy for perforated appendicitis with drain placement. -I explained to the patient that her risk for abscess is high and therefore she will remain inpatient on IV antibiotics until her white blood cell count returns to normal, her ileus resolves and she is afebrile. -because of her postop ileus she will continue on IV fluids and clear liquids. -hemoglobin drift to 11.7 from 14. RADHA drain is serous and there was minimal bleeding intraoperatively, therefore low suspicion for ongoing hemorrhage. Okay to continue Lovenox for DVT prophylaxis -encourage ambulation/IS -patient is on Cipro Flagyl for intra-abdominal infection. -repeat labs tomorrow.
[2022-03-25] MEDS: ACETAMINOPHEN 325 MG TABLET 650 MG PO (13:08)
--- NOTE | 2022-03-25 14:09 | PM.IMPN1 ---
Progress Note: A&P Assessment and plan (1) Acute appendicitis: Status: Acute Assessment and Plan: Will follow general surgery's recommendations. Continue Cipro/Flagyl. Broth diet. Will try to ambulate. Repeat CBC, CRP and CMP in am. Drop in Hgb noted. Will again recheck CBC in am and watch for any change in symptoms. (2) Chronic GERD: Status: Chronic Assessment and Plan: Continue Omeprazole (3) Hyperlipidemia: Status: Chronic Assessment and Plan: Continue Statin (4) Hypertension: Status: Chronic Assessment and Plan: Continue to hold Losartan-HCTZ blood pressure currently 105/57 (5) Anxiety: Status: Chronic Assessment and Plan: Continue Escitalopram (6) Abnormal LFTs: Status: Chronic Assessment and Plan: Normalized this morning. Will repeat again tomorrow. Subjective Date Seen: 03/25/22 Interval history: Pt is a 76 year old woman who underwent appendectomy yesterday for a perforated appendicitis. Drain is in place. Pt having some mild crampy abd pain and has not had any flatus. Pt tolerating broth diet. No fever noted overnight. Pt's WBC went from 14.46 to 12.33. Her hemeglobin went from 14.4 to 11.7. No obvious blood loss. Surgery has seen today. Pt is currently on Cipro plus Flagyl. Exam Narrative: Exam Narrative: EXAM GENERAL: Patient appears comfortable. EYES: No scleral icterus. THYROID: no thyroid nodules or thyromegaly. LYMPH: No supraclavicular or cervical lymphadenopathy. SKIN: Visible skin seen during exam normal or with benign process only. EXT: No dependent lower extremity pedal edema. HEART: Regular rate and rhythm with no murmurs, rubs, or gallops. LUNGS: Clear to auscultation bilaterally with no crackles or wheezes. ABD: Drain in place in the incision site on the right side of the abd. Hypoactive bowel sounds with mild diffuse tenderness to palpation. PSYCH: Good eye contact, speech is not pressured. Const: Vital Signs, click to edit/add: Vital Signs - 24 hr 03/24/22 15:00 03/24/22 15:00 03/24/22 18:49 Temperature 99.2 F 99.1 F Pulse Rate 78 Pulse Rate [Right Pulse Oximeter] 70 Respiratory Rate 18 18 16 Blood Pressure 143/86 H Blood Pressure [Ri ght Arm] 132/60 Pulse Oximetry 96 98 98 Oxygen Delivery Me thod Room Air Room Air Nasal Cannula Oxygen Flow Rate 2 03/24/22 18:55 03/24/22 19:00 03/24/22 19:05 Temperature Pulse Rate 79 78 78 Pulse Rate [Right Pulse Oximeter] Respiratory Rate 16 16 16 Blood Pressure 134/41 L 143/54 H 140/65 H Blood Pressure [Ri ght Arm] Pulse Oximetry 99 99 98 Oxygen Delivery Me thod Room Air Oxygen Flow Rate 03/24/22 19:10 03/24/22 19:15 03/24/22 19:20 Temperature Pulse Rate 76 78 75 Pulse Rate [Right Pulse Oximeter] Respiratory Rate 14 14 14 Blood Pressure 138/55 L 131/65 122/61 Blood Pressure [Ri ght Arm] Pulse Oximetry 95 97 92 Oxygen Delivery Me thod Oxygen Flow Rate 03/24/22 19:30 03/24/22 19:45 03/24/22 20:00 Temperature 98.3 F 97.9 F 98.5 F Pulse Rate Pulse Rate [Right Pulse Oximeter] 71 70 76 Respiratory Rate 14 14 16 Blood Pressure Blood Pressure [Ri ght Arm] 122/46 L 105/55 L 114/51 L Pulse Oximetry 95 95 95 Oxygen Delivery Me thod Room Air Nasal Cannula Nasal Cannula Oxygen Flow Rate 1 1 1 03/24/22 20:30 03/24/22 21:00 03/24/22 16:38 Temperature Pulse Rate 77 Pulse Rate [Right Pulse Oximeter] 70 78 Respiratory Rate 16 16 Blood Pressure Blood Pressure [Ri ght Arm] 110/44 L 106/46 L Pulse Oximetry 95 94 Oxygen Delivery Me thod Nasal Cannula Nasal Cannula Oxygen Flow Rate 1 1 03/24/22 21:30 03/24/22 22:00 03/24/22 23:00 Temperature 98.2 F Pulse Rate Pulse Rate [Right Pulse Oximeter] 81 81 81 Respiratory Rate 16 16 16 Blood Pressure Blood Pressure [Ri ght Arm] 106/44 L 117/51 L 130/53 L Pulse Oximetry 94 94 93 Oxygen Delivery Me thod Nasal Cannula Nasal Cannula Nasal Cannula Oxygen Flow Rate 1 1 1 03/25/22 00:00 03/25/22 01:00 03/24/22 23:00 Temperature 98 F Pulse Rate Pulse Rate [Right Pulse Oximeter] 82 82 76 Respiratory Rate 16 16 16 Blood Pressure Blood Pressure [Ri ght Arm] 118/57 L 106/51 L Pulse Oximetry 95 95 Oxygen Delivery Me thod Nasal Cannula Nasal Cannula Oxygen Flow Rate 1 1 03/25/22 03:00 03/25/22 08:38 03/25/22 11:22 Temperature 97.8 F 98 F 97.6 F Pulse Rate Pulse Rate [Right Pulse Oximeter] 77 66 74 Respiratory Rate 16 16 16 Blood Pressure Blood Pressure [Ri ght Arm] 105/52 L 120/59 L 105/57 L Pulse Oximetry 95 98 95 Oxygen Delivery Me thod Nasal Cannula Room Air Room Air Oxygen Flow Rate 1 Labs Labs: Laboratory Results - last 24 hr 03/25/22 03/25/22 06:25 06:25 WBC 12.33 H RBC 3.98 L Hgb 11.7 L Hct 36.1 MCV 91 MCH 29 MCHC 32 RDW Coeff of Mark 13.5 Plt Count 212 Neut % (Auto) 85.4 H Lymph % (Auto) 7.5 L Butler % (Auto) 6.7 Eos % (Auto) 0.0 Baso % (Auto) 0.2 Neut # (Auto) 10.50 H Lymph # (Auto) 0.90 Butler # (Auto) 0.80 Eos # (Auto) 0.00 Baso # (Auto) 0.00 Abs Immat Gran (auto) 0.02 Sodium 132 L Potassium 3.6 Chloride 98 Carbon Dioxide 27 BUN 15 Creatinine 0.7 Estimated Creat Clear 38.44 Estimated GFR 90 Glucose 133 H Calcium 8.4 Total Bilirubin 1.5 AST 18 ALT 22 Alkaline Phosphatase 80 C-Reactive Protein 22.8 H Total Protein 6.1 Albumin 3.5
--- NOTE | 2022-03-25 17:41 | PC.NURSE ---
Shift Summary: Patient pleasant and cooperative. Up independently, will call staff to assist with IV pole when needed. Walks in halls independently. Pain controlled with PRN medication and ice. Incision sites dry and intact. RADHA drain patent, 20cc between [id number]. Continues on clear liquid, IV patent with LR running.
[2022-03-25] MEDS: OMEPRAZOLE 20 MG CAPSULE DR PO (21:04)
[2022-03-25] MEDS: SIMVASTATIN 20 MG TABLET PO (21:04)
[2022-03-26] MEDS: LACTATED RINGERS 1000 ML 1,000 ML 125 ML IV (02:05)
[2022-03-26] MEDS: TRAMADOL HCL 50 MG TABLET PO ×3 (02:13→17:05)
[2022-03-26] MEDS: CIPROFLOXACIN 400 MG/200 ML inj IVPB ×2 (02:21→14:46)
[2022-03-26 03:00] VITALS: BP 114/59; PULSE 64; RESP 18; TEMP 36.4; O2SAT 95
[2022-03-26] MEDS: metroNIDAZOLE 500 MG/100 ML PIGGYBACK IVPB ×3 (04:42→21:06)
[2022-03-26 06:43] LABS: Basophils Absolute Auto 0.04 K/uL (0.00-0.30); Basophils Percent Auto 0.4 % (0.0-3.0); Eosinophils Absolute Auto 0.06 K/uL (0.00-0.50); Eosinophils Percent Auto 0.7 % (0.0-7.0); Hematocrit 37.5 % (33.0-51.0); Hemoglobin* 11.9 gm/dL (12.0-16.0); Immature Granulocytes Abs Auto 0.02 K/uL (0.00-0.30); Lymphocytes Percent Auto 12.2 % (20-44); Mean Corpuscular HGB Conc 32 gm/dL (32-36); Mean Corpuscular Hemoglobin 30 pg (26-34); Mean Corpuscular Volume 93 fL (80-100); Monocytes Percent Auto 7.5 % (0.0-11.0); Platelet Count* 215 K/uL (140-440); RDW Coefficient of Variation % 13.6 % (11.5-15.5); Red Blood Count 4.02 m/uL (4.00-5.20); White Blood Count* 9.11 K/uL (4.50-11.00)
[2022-03-26 06:55] LABS: Slide Review Reflex No
[2022-03-26 07:00] VITALS: BP 117/63; PULSE 71; RESP 18; TEMP 36.4; O2SAT 95
[2022-03-26 07:02] LABS: Chloride* 94 mmol/L (96-114)
[2022-03-26 07:03] LABS: Albumin* 3.5 g/dL (3.3-5.0); Potassium* 3.4 mmol/L (3.6-5.1); Sodium* 131 mmol/L (135-149)
[2022-03-26 07:05] LABS: Creatinine* 0.7 mg/dL (0.5-1.5); Est. Creatinine Clearance* 38.44; Estimated Glomerular Filt Rate 90 ml/min
[2022-03-26 07:06] LABS: Alanine Aminotransferase* 26 U/L (4-35); Alkaline Phosphatase* 77 U/L (40-150); Aspartate Amino Transferase* 20 U/L (12-35); Bilirubin Total* 1.2 mg/dL (0.1-1.5); Blood Urea Nitrogen* 14 mg/dL (7-30); Calcium* 8.3 mg/dL (8.4-10.6); Carbon Dioxide* 31 mmol/L (20-32); Glucose* 115 mg/dL (60-115); Total Protein* 6.4 g/dL (6.0-8.3)
--- NOTE | 2022-03-26 08:05 | PC.NURSE ---
: pleasant and cooperative. SBA to BR. Pt stating she is not passing gas, but does feel bloated, pt encouraged to walk halls. No BM.?c/o pain in abdomen, see eMAR for meds given. Gauze?around RADHA changed, minimal blood on old gauze. 35ml out of RADHA. Soft BPs, per MD note BP meds should be held, however AM Losartan and Hydrochlorothiazide given 03/25, Charge Notified and will address in report, BPs stable and monitored throughout shift. O2 87-88% on RA when asleep, put pt on 1L NC and sats maintained 93-95%
[2022-03-26] MEDS: ESCITALOPRAM 10 MG TABLET PO (08:50)
[2022-03-26] MEDS: ENOXAPARIN 40 MG/0.4 ML INJ SUBCUT (08:50)
[2022-03-26] MEDS: ACETAMINOPHEN 325 MG TABLET 650 MG PO (09:25)
[2022-03-26 11:00] VITALS: BP 116/62; PULSE 70; RESP 18; TEMP 36.6; O2SAT 93
--- NOTE | 2022-03-26 11:17 | PM.GSPN ---
Subjective Subjective Date Seen: 03/26/22 Interval history: Nicole denies nausea. She is still having quite a bit of crampy pain in her abdomen. She has no nausea. No chest pain or shortness of breath. Exam Narrative: Exam Narrative: General: No acute distress CV: Regular rate and rhythm Respiratory: Clear bilaterally Abdomen: Distended and mildly tender to palpation, however consistent with postoperative state. Drain with minimal serous output Const: Vital Signs, click to edit/add: Vital Signs - 24 hr 03/25/22 11:22 03/25/22 15:00 03/25/22 16:55 Temperature 97.6 F 97.6 F Pulse Rate 64 Pulse Rate [Right Pulse Oximeter] 74 71 Respiratory Rate 16 16 Blood Pressure [Ri ght Arm] 105/57 L 108/54 L Pulse Oximetry 95 94 Oxygen Delivery Me thod Room Air Room Air Oxygen Flow Rate 03/25/22 19:00 03/25/22 22:50 03/25/22 23:00 Temperature 98 F Pulse Rate 71 Pulse Rate [Right Pulse Oximeter] 69 71 Respiratory Rate 16 16 Blood Pressure [Ri ght Arm] 113/64 Pulse Oximetry 93 Oxygen Delivery Me thod Room Air Oxygen Flow Rate 03/25/22 23:00 03/26/22 03:00 03/26/22 07:00 Temperature 97.4 F L 97.6 F 97.6 F Pulse Rate Pulse Rate [Right Pulse Oximeter] 74 64 71 Respiratory Rate 16 18 18 Blood Pressure [Ri ght Arm] 110/57 L 114/59 L 117/63 Pulse Oximetry 87 L 95 95 Oxygen Delivery Me thod Room Air Nasal Cannula Room Air Oxygen Flow Rate 1 0 03/26/22 07:00 Temperature Pulse Rate Pulse Rate [Right Pulse Oximeter] 71 Respiratory Rate 18 Blood Pressure [Ri ght Arm] Pulse Oximetry Oxygen Delivery Me thod Oxygen Flow Rate Labs/Imaging Labs Labs: White blood cell count has decreased to 9 from 12. CRP is 17 from 20/2. Hemoglobin is stable at 11.9. She is mildly hyponatremic at 1:31 a.m., mildly hypokalemic at 3.4 and also hypochloremic Progress Note: A&P Assessment and plan (1) S/P laparoscopic appendectomy: Status: Acute (2) Anxiety: Status: Chronic (3) Hypertension: Status: Chronic (4) Hyperlipidemia: Status: Chronic (5) Acute appendicitis: Status: Acute Plan The patient is a 76-year-old female status post laparoscopic appendectomy for perforated appendicitis with drain placement. She is doing well overall. She has an ileus which is expected postoperatively. I did order a glycerin suppository for her she feels she needs to have a bowel movement, however she understands that it will likely take time for her bowels to recover. I have changed her maintenance IV fluids to saline with potassium given that she is hyponatremic hypochloremic and hypokalemic. I told her to go slow with the diet. I think she will likely need 1 more day of IV antibiotics and possibly she could discharge home tomorrow. She should continue with Lovenox as well as ambulation and incentive spirometry.
[2022-03-26] MEDS: 0.9 % SODIUM CH + KCL 20 mEq/L 1,000 ML 100 ML IV (13:42)
--- NOTE | 2022-03-26 13:50 | P.IMPN_ITS ---
Progress Note: A&P Assessment and plan (1) S/P laparoscopic appendectomy: Status: Acute (2) Anxiety: Status: Chronic (3) Hypertension: Status: Chronic (4) Hyperlipidemia: Status: Chronic (5) Chronic GERD: Status: Chronic Plan 76-year-old female, admitted for ruptured appendicitis. She is postop day 2, continues to improve daily. Her white blood count and inflammatory markers are improving, and she is tolerating IV antibiotics. Her chronic conditions are stable. Today, recommend ambulation and advancing diet as tolerated, likely home tomorrow if General surgery in agreement. Time Spent With Patient Total time spent: 25 Subjective Date Seen: 03/26/22 Interval history: Nicole has some crampy abdominal pain, but no other concerns for the hospitalist team. Her chronic conditions (hypertension, hyperlipidemia, GERD, and anxiety) have remained stable. Exam Narrative: Exam Narrative: GEN: Alert and oriented, sitting comfortably in bed, answering questions appropriately HEENT: Normal external ears, EOMIs bilaterally, no scleral icterus CV: RRR, No concerning murmurs, rubs, or gallops R: LCTA bilaterally without concerning wheezing, rales, or rhonchi Ext: wwp, no concerning edema Skin: No concerning skin lesions or rashes on exposed skin Neuro: Nonfocal Psych: Appropriate Const: Vital Signs, click to edit/add: Vital Signs - 24 hr 03/25/22 15:00 03/25/22 16:55 03/25/22 19:00 Temperature 97.6 F 98 F Pulse Rate 64 Pulse Rate [Right Pulse Oximeter] 71 69 Respiratory Rate 16 16 Blood Pressure [Ri ght Arm] 108/54 L 113/64 Pulse Oximetry 94 93 Oxygen Delivery Me thod Room Air Room Air Oxygen Flow Rate 03/25/22 22:50 03/25/22 23:00 03/25/22 23:00 Temperature 97.4 F L Pulse Rate 71 Pulse Rate [Right Pulse Oximeter] 71 74 Respiratory Rate 16 16 Blood Pressure [Ri ght Arm] 110/57 L Pulse Oximetry 87 L Oxygen Delivery Me thod Room Air Oxygen Flow Rate 03/26/22 03:00 03/26/22 07:00 03/26/22 07:00 Temperature 97.6 F 97.6 F Pulse Rate Pulse Rate [Right Pulse Oximeter] 64 71 71 Respiratory Rate 18 18 18 Blood Pressure [Ri ght Arm] 114/59 L 117/63 Pulse Oximetry 95 95 Oxygen Delivery Me thod Nasal Cannula Room Air Oxygen Flow Rate 1 0 03/26/22 11:00 Temperature 97.8 F Pulse Rate Pulse Rate [Right Pulse Oximeter] 70 Respiratory Rate 18 Blood Pressure [Ri ght Arm] 116/62 Pulse Oximetry 93 Oxygen Delivery Me thod Room Air Oxygen Flow Rate 0 Labs Labs: Laboratory Results - last 24 hr 03/26/22 03/26/22 06:06 06:06 WBC 9.11 RBC 4.02 Hgb 11.9 L Hct 37.5 MCV 93 MCH 30 MCHC 32 RDW Coeff of Mark 13.6 Plt Count 215 Neut % (Auto) 79.0 H Lymph % (Auto) 12.2 L [place] % (Auto) 7.5 Eos % (Auto) 0.7 Baso % (Auto) 0.4 Neut # (Auto) 7.20 H Lymph # (Auto) 1.10 [place] # (Auto) 0.70 Eos # (Auto) 0.06 Baso # (Auto) 0.04 Abs Immat Gran (auto) 0.02 Sodium 131 L Potassium 3.4 L Chloride 94 L Carbon Dioxide 31 BUN 14 Creatinine 0.7 Estimated Creat Clear 38.44 Estimated GFR 90 Glucose 115 Calcium 8.3 L Total Bilirubin 1.2 AST 20 ALT 26 Alkaline Phosphatase 77 C-Reactive Protein 17.0 H Total Protein 6.4 Albumin 3.5
[2022-03-26 15:00] VITALS: BP 116/62; PULSE 70; PULSE 71; RESP 18; TEMP 36.6; O2SAT 93
--- NOTE | 2022-03-26 17:44 | PC.NURSE ---
Patient pleasant and cooperative. Surgical sites intact. RADHA with low output to R quadrant. stripped and drained q2-4 hours. 20cc's out from [id number]. Pt up ambulating in [place] x3 thus far, steady on feet. Fluids changed to NS with 20K. IV infiltrated to left AC, new IV started to R forearm. Pt tolerating clear liquids. Passing gas as of [address] Arredondo notified, verbal order obtained for patient to try full liquids. Pt ordered cream of chicken soup and a yogurt with clear tray for dinner. Ultram for pain. pt reports soreness to right hip, encouraged changing from bed to chair in room as well as ambulation. Pt verbalized understanding. LS CTA - pt working on IS in room. Spouse at bedside and supportive. Glycerine suppository on EMAR if pt feels urge for BM.
[2022-03-26 19:00] VITALS: BP 113/57; PULSE 73; RESP 18; TEMP 36.7; O2SAT 80
[2022-03-26] MEDS: SIMVASTATIN 20 MG TABLET PO (21:06)
[2022-03-26] MEDS: OMEPRAZOLE 20 MG CAPSULE DR PO (21:06)
[2022-03-26 22:12] VITALS: BP 122/59; PULSE 74; RESP 16; TEMP 36.6; O2SAT 98
[2022-03-27] MEDS: CIPROFLOXACIN 400 MG/200 ML inj IVPB ×2 (02:55→14:54)
[2022-03-27 03:00] VITALS: BP 124/55; PULSE 77; RESP 16; TEMP 36.9; O2SAT 95
[2022-03-27] MEDS: TRAMADOL HCL 50 MG TABLET PO ×3 (04:15→15:05)
[2022-03-27] MEDS: 0.9 % SODIUM CH + KCL 20 mEq/L 1,000 ML 100 ML IV ×2 (04:15→15:06)
--- NOTE | 2022-03-27 05:01 | PC.NURSE ---
[id number] upon initial assessment at approx 1930 pt sleeping when nurse entered room, vitals and assessment completed, O2 sats at 80% RA, woke pt up, encouraged pt to take deep breaths, placed pulse ox on different finger. Pt was drowsy but easily woke up. Placed Pt on 3 LPM NC until O2 >90%, titrated down to 2 LPM and monitored pt. As night progressed Pt able to tolerated O2 titration down until pt on RA with sats >90%. Pain 4-6/10 to RLQ abdomen,crampy, occasionally sharp, Ice applied to site and prn pain medication administered. RADHA drain stripped and emptied q4h, pt tolerates well. up to BR x2 with SBA
[2022-03-27 07:00] VITALS: BP 130/59; PULSE 76; RESP 16; TEMP 36.6; O2SAT 92
[2022-03-27 07:01] LABS: Basophils Absolute Auto 0.02 K/uL (0.00-0.30); Basophils Percent Auto 0.3 % (0.0-3.0); Eosinophils Absolute Auto 0.07 K/uL (0.00-0.50); Eosinophils Percent Auto 1.1 % (0.0-7.0); Hematocrit 33.7 % (33.0-51.0); Hemoglobin* 10.8 gm/dL (12.0-16.0); Immature Granulocytes Abs Auto 0.02 K/uL (0.00-0.30); Lymphocytes Percent Auto 10.5 % (20-44); Mean Corpuscular HGB Conc 32 gm/dL (32-36); Mean Corpuscular Hemoglobin 30 pg (26-34); Mean Corpuscular Volume 92 fL (80-100); Monocytes Percent Auto 8.9 % (0.0-11.0); Neutrophils Percent Auto 78.9 % (42.0-72.0); Platelet Count* 212 K/uL (140-440); RDW Coefficient of Variation % 13.3 % (11.5-15.5); Red Blood Count 3.65 m/uL (4.00-5.20); White Blood Count* 6.26 K/uL (4.50-11.00)
[2022-03-27 07:08] LABS: Slide Review Reflex No
[2022-03-27 07:14] LABS: Chloride* 96 mmol/L (96-114); Potassium* 3.3 mmol/L (3.6-5.1); Sodium* 133 mmol/L (135-149)
[2022-03-27 07:17] LABS: Creatinine* 0.6 mg/dL (0.5-1.5); Est. Creatinine Clearance* 38.44; Estimated Glomerular Filt Rate 94 ml/min
[2022-03-27 07:18] LABS: Blood Urea Nitrogen* 8 mg/dL (7-30); Calcium* 7.8 mg/dL (8.4-10.6); Carbon Dioxide* 31 mmol/L (20-32); Glucose* 118 mg/dL (60-115)
[2022-03-27] MEDS: ENOXAPARIN 40 MG/0.4 ML INJ SUBCUT (08:19)
[2022-03-27] MEDS: hydroCHLOROthiazide 12.5 MG CAPSULE PO (08:20)
[2022-03-27] MEDS: LOSARTAN POTASSIUM 50 MG TABLET 100 MG PO (08:20)
[2022-03-27] MEDS: ESCITALOPRAM 10 MG TABLET PO (08:21)
[2022-03-27 11:00] VITALS: BP 134/63; PULSE 70; RESP 16; TEMP 36.6; O2SAT 96
--- NOTE | 2022-03-27 11:13 | P.GSPN_ITS ---
Subjective Subjective Date Seen: 03/27/22 Interval history: Nicole is having some crampy pain intermittently and some very mild nausea. She was advanced to a full liquid diet when she began passing gas. No other concerns this morning. No chest pain or shortness of breath. Exam Narrative: Exam Narrative: General: No acute distress CV: Regular rate and rhythm PULM: Breathing nonlabored on room air Abdomen: Distended and mildly tender. Incisions are clean and dry. Drain output is serous. 20 mL out per shift. Const: Vital Signs, click to edit/add: Vital Signs - 24 hr 03/26/22 15:00 03/26/22 15:00 03/26/22 19:00 Temperature 97.8 F 98.0 F Pulse Rate [Right Pulse Oximeter] 71 70 73 Respiratory Rate 18 18 18 Blood Pressure [Le ft Arm] Blood Pressure [Ri ght Arm] 116/62 113/57 L Pulse Oximetry 93 80 L Oxygen Delivery Me thod Room Air Room Air Oxygen Flow Rate 0 0 03/26/22 22:12 03/26/22 22:12 03/27/22 03:00 Temperature 97.8 F 98.4 F Pulse Rate [Right Pulse Oximeter] 74 74 77 Respiratory Rate 16 16 16 Blood Pressure [Le ft Arm] 122/59 L 124/55 L Blood Pressure [Ri ght Arm] Pulse Oximetry 98 95 Oxygen Delivery Me thod Nasal Cannula Room Air Oxygen Flow Rate 1 03/27/22 07:00 03/27/22 07:00 Temperature 97.9 F Pulse Rate [Right Pulse Oximeter] 76 76 Respiratory Rate 16 16 Blood Pressure [Le ft Arm] 130/59 L Blood Pressure [Ri ght Arm] Pulse Oximetry 92 Oxygen Delivery Me thod Room Air Oxygen Flow Rate 0 Labs/Imaging Labs Labs: Hemoglobin drift from 10-11. White blood cell count 6 from 9 but still with a left shift. CRP is 18 from 17 She remains mildly hyponatremic at 1:31 a.m.. Potassium is low at 3.3. Progress Note: A&P Assessment and plan (1) Hyponatremia: Status: Acute (2) Hypokalemia: Status: Acute (3) S/P laparoscopic appendectomy: Status: Acute (4) Perforated appendicitis: Status: Acute (5) Hypertension: Status: Chronic Plan The patient is a 76-year-old female is postop day 3 after laparoscopic appendectomy and drain placement for perforated appendicitis. She likely still has ileus. I did encourage her to go slowly with her intake since she did have a bit of nausea today. She has started to pass some gas so hopefully bowel function will return soon. I did order a glycerin suppository if she would like to try, however she thinks she may be able to have a bowel movement on her own. -she remains somewhat hyponatremic though this is improving on saline infusion. Repeat labs in a.m. -potassium is decreased at 3.3. Will replace today. -will discuss with hospitalist about holding hydrochlorothiazide for hypokalem ia. This had been on hold but was given today. -continut lovenox for DVT proph -encourage ambulation/IS -Continue drain today, consider removal prior to d/c depending on hospital course -Continue cipro/flagyl for perforated appendicitis.
[2022-03-27] MEDS: POTASSIUM BICARB 25 MEQ EFFERVESCENT TAB PO ×3 (12:08→14:54)
[2022-03-27] MEDS: metroNIDAZOLE 500 MG/100 ML PIGGYBACK IVPB ×2 (13:04→21:21)
[2022-03-27 15:00] VITALS: BP 138/70; PULSE 69; PULSE 70; RESP 16; RESP 18; TEMP 36.2; O2SAT 94
--- NOTE | 2022-03-27 16:42 | PM.IMPN1 ---
Progress Note: A&P Assessment and plan (1) Perforated appendicitis: Status: Acute (2) S/P laparoscopic appendectomy: Status: Acute (3) Hypokalemia: Status: Acute (4) Hyponatremia: Status: Acute (5) Abnormal LFTs: Status: Chronic (6) Hypertension: Status: Chronic (7) Hyperlipidemia: Status: Chronic (8) Chronic GERD: Status: Chronic (9) Anxiety: Status: Chronic Plan 1. Overall patient is stable. 2. Continue with supportive management efforts including potassium supplementation and monitoring. 3. Continue to monitor other laboratory studies. 4. Encourage increased activity as tolerated 5. Will continue to follow with General surgery. Time Spent With Patient Total time spent: 30 minutes Subjective Time Seen by Provider: 10:00 Date Seen: 03/27/22 Interval history: 76-year-old woman status post laparoscopic copy ache appendectomy. Still has postop ileus. Notes sense of fullness in abdomen. Tolerating increased activities. Denies nausea vomiting. Otherwise doing well. Exam Narrative: Exam Narrative: Alert, oriented to self, place, time, situation. Articulate. Cooperative. Friendly. Mood and affect are congruent. Lungs are clear to auscultation without wheezing, rhonchi, or rales. Heart tones with regular rhythm, normal S1-S2. No murmur, gallop, or rub. Abdomen with bowel sounds. Mildly distended. Subjective discomfort to palpation. No rebound or guarding. Extremities without edema. Independent in transfer, station, and gait. Skin is intact. I do not checked the surgical incision site. Const: Vital Signs, click to edit/add: Vital Signs - 24 hr 03/26/22 19:00 03/26/22 22:12 03/26/22 22:12 Temperature 98.0 F 97.8 F Pulse Rate [Right Pulse Oximeter] 73 74 74 Respiratory Rate 18 16 16 Blood Pressure [Le ft Arm] 122/59 L Blood Pressure [Ri ght Arm] 113/57 L Pulse Oximetry 80 L 98 Oxygen Delivery Me thod Room Air Nasal Cannula Oxygen Flow Rate 0 1 03/27/22 03:00 03/27/22 07:00 03/27/22 07:00 Temperature 98.4 F 97.9 F Pulse Rate [Right Pulse Oximeter] 77 76 76 Respiratory Rate 16 16 16 Blood Pressure [Le ft Arm] 124/55 L 130/59 L Blood Pressure [Ri ght Arm] Pulse Oximetry 95 92 Oxygen Delivery Me thod Room Air Room Air Oxygen Flow Rate 0 03/27/22 11:00 03/27/22 15:00 03/27/22 15:00 Temperature 97.9 F 97.2 F L Pulse Rate [Right Pulse Oximeter] 70 70 69 Respiratory Rate 16 18 16 Blood Pressure [Le ft Arm] 134/63 138/70 Blood Pressure [Ri ght Arm] Pulse Oximetry 96 94 Oxygen Delivery Me thod Room Air Room Air Oxygen Flow Rate 0 0 Documenting provider has reviewed patient's vital signs: yes Labs Labs: Laboratory Results - last 24 hr 03/24/22 03/27/22 03/27/22 19:56 06:15 06:15 WBC 6.26 RBC 3.65 L Hgb 10.8 L Hct 33.7 MCV 92 MCH 30 MCHC 32 RDW Coeff of Mark 13.3 Plt Count 212 Neut % (Auto) 78.9 H Lymph % (Auto) 10.5 L [place] % (Auto) 8.9 Eos % (Auto) 1.1 Baso % (Auto) 0.3 Neut # (Auto) 4.90 Lymph # (Auto) 0.70 L [place] # (Auto) 0.60 Eos # (Auto) 0.07 Baso # (Auto) 0.02 Abs Immat Gran (auto) 0.02 Sodium 133 L Potassium 3.3 L Chloride 96 Carbon Dioxide 31 BUN 8 Creatinine 0.6 Estimated Creat Clear 38.44 Estimated GFR 94 Glucose 118 H Calcium 7.8 L C-Reactive Protein 18.0 H Surg PTH (Off-Site) See Scanned Report
[2022-03-27 19:00] VITALS: BP 148/60; PULSE 72; RESP 16; TEMP 36.5; O2SAT 95
--- NOTE | 2022-03-27 19:56 | PC.NURSE ---
Pt pleasant and cooperative. steady on feet and ambulating x3 in hallways. Pt continues to c/o cramping, some flatus passed today. tolerating full liquid liquid diet - no N/V. BS active x4. K+ replaced today. CRP up today from 17 to 18. No BM today, pt will stay another night with hopes for BM tomorrow. RADHA drain had 20 cc output over 12 hours of clear yellow fluid. no pain with stripping. RADHA dressing changed this AM. belly distended but soft, lap sites intact.
[2022-03-27] MEDS: OMEPRAZOLE 20 MG CAPSULE DR PO (21:21)
[2022-03-27] MEDS: SIMVASTATIN 20 MG TABLET PO (21:22)
[2022-03-27 23:00] VITALS: BP 119/56; PULSE 73; RESP 16; TEMP 36.2; O2SAT 96
[2022-03-28 03:00] VITALS: BP 138/68; PULSE 69; RESP 16; TEMP 36.6; O2SAT 93
[2022-03-28] MEDS: CIPROFLOXACIN 400 MG/200 ML inj IVPB (03:01)
[2022-03-28] MEDS: 0.9 % SODIUM CH + KCL 20 mEq/L 1,000 ML 100 ML IV (04:33)
[2022-03-28] MEDS: metroNIDAZOLE 500 MG/100 ML PIGGYBACK IVPB (04:34)
--- NOTE | 2022-03-28 05:57 | PC.NURSE ---
[id number] Pt pleasant and cooperative, up independently/SBA to br x2, tolerating activity well. Pt had BM during evening, loose, moderate and pt reported decrease in cramping/pain afterwards. Rated pain 1-2/10 since having BM. no prn pain medications needed this shift, slept well during night. no N/V, active bowel sounds x4, output in RADHA drain decreased as night progressed.
[2022-03-28 07:00] VITALS: BP 144/71; PULSE 71; PULSE 98; RESP 16; TEMP 36.6; O2SAT 93
[2022-03-28 07:14] LABS: Basophils Absolute Auto 0.02 K/uL (0.00-0.30); Basophils Percent Auto 0.3 % (0.0-3.0); Eosinophils Absolute Auto 0.15 K/uL (0.00-0.50); Eosinophils Percent Auto 2.1 % (0.0-7.0); Hematocrit 37.5 % (33.0-51.0); Hemoglobin* 12.1 gm/dL (12.0-16.0); Immature Granulocytes Abs Auto 0.05 K/uL (0.00-0.30); Lymphocytes Percent Auto 19.4 % (20-44); Mean Corpuscular HGB Conc 32 gm/dL (32-36); Mean Corpuscular Hemoglobin 30 pg (26-34); Mean Corpuscular Volume 92 fL (80-100); Monocytes Percent Auto 10.6 % (0.0-11.0); Neutrophils Percent Auto 66.9 % (42.0-72.0); Platelet Count* 299 K/uL (140-440); RDW Coefficient of Variation % 13.1 % (11.5-15.5); White Blood Count* 7.17 K/uL (4.50-11.00)
[2022-03-28 07:18] LABS: Slide Review Reflex No
[2022-03-28 07:32] LABS: Chloride* 96 mmol/L (96-114)
[2022-03-28 07:33] LABS: Potassium* 3.7 mmol/L (3.6-5.1); Sodium* 134 mmol/L (135-149)
[2022-03-28 07:35] LABS: Creatinine* 0.6 mg/dL (0.5-1.5); Est. Creatinine Clearance* 38.44; Estimated Glomerular Filt Rate 94 ml/min
[2022-03-28 07:36] LABS: Blood Urea Nitrogen* 8 mg/dL (7-30); Carbon Dioxide* 33 mmol/L (20-32); Glucose* 124 mg/dL (60-115)
[2022-03-28 07:37] LABS: Calcium* 8.3 mg/dL (8.4-10.6)
[2022-03-28 07:51] LABS: C Reactive Protein* 13.7 mg/dL (0.5-1.0)
--- NOTE | 2022-03-28 09:14 | P.DS_ITS ---
DS: Providers Provider Date Seen: 03/28/22 Date of admission: 03/25/22 14:11 Primary care physician: Mariangel Ly Admitting Clinician: Pilar Santoro MD Attending Physician on discharge: Pilar Santoro MD DS: Diagnosis Discharge Diagnosis (1) Perforated appendicitis: Status: Acute (2) S/P laparoscopic appendectomy: Status: Acute (3) Anxiety: Status: Chronic (4) Hypertension: Status: Chronic (5) Hyperlipidemia: Status: Chronic DS: Summary Hospital Course Hospital Course: The patient is a 76-year-old female who presented to [facility] Emergency Department on 03/24/2022 with acute appendicitis. Intraoperatively this was found to be perforated containing a localize abscess. A drain was placed and she was admitted to the hospital postoperatively on IV antibiotics. She initially had an ileus, however by postoperative day 3 this had resolved. She had normalization of her white blood cell count, improvement in her CRP and drain output was minimal serous drainage and so this was removed. She was deemed safe for discharge home. Of note, she did have some hyponatremia and hypokalemia which was resolved by replacement holding hydrochlorothiazide. Time Spent with Patient Time attestation: Total time spent providing and/or coordinating discharge services: Exam Narrative: Exam Narrative: General: No acute distress CV: Regular rate and rhythm Respiratory: Clear to auscultation bilaterally Abdomen: Mildly distended. Drain with minimal serous output. This was removed without incident. Very faint erythema below the umbilicus. This was marked. Const: Vital Signs, click to edit/add: Vital Signs - 24 hr 03/27/22 11:00 03/27/22 15:00 03/27/22 15:00 Temperature 97.9 F 97.2 F L Pulse Rate [Right Pulse Oximeter] 70 70 69 Respiratory Rate 16 18 16 Blood Pressure [Le ft Arm] 134/63 138/70 Pulse Oximetry 96 94 Oxygen Delivery Me thod Room Air Room Air Oxygen Flow Rate 0 0 03/27/22 19:00 03/27/22 23:00 03/27/22 23:00 Temperature 97.7 F 97.2 F L Pulse Rate [Right Pulse Oximeter] 72 73 73 Respiratory Rate 16 16 16 Blood Pressure [Le ft Arm] 148/60 H 119/56 L Pulse Oximetry 95 96 Oxygen Delivery Me thod Room Air Room Air Oxygen Flow Rate 0 0 08/28/22 03:00 03/28/22 07:00 03/28/22 07:00 Temperature 97.8 F 97.8 F Pulse Rate [Right Pulse Oximeter] 69 98 71 Respiratory Rate 16 16 16 Blood Pressure [Le ft Arm] 138/68 144/71 H Pulse Oximetry 93 93 Oxygen Delivery Me thod Room Air Room Air Oxygen Flow Rate 0 0 DS: Data Data Completed and Pending Labs on day of discharge: Labs from last 24 hours 03/28/22 03/28/22 06:30 06:30 WBC 7.17 RBC 4.10 Hgb 12.1 Hct 37.5 MCV 92 MCH 30 MCHC 32 RDW Coeff of Mark 13.1 Plt Count 299 Neut % (Auto) 66.9 Lymph % (Auto) 19.4 L [place] % (Auto) 10.6 Eos % (Auto) 2.1 Baso % (Auto) 0.3 Neut # (Auto) 4.80 Lymph # (Auto) 1.40 [place] # (Auto) 0.80 Eos # (Auto) 0.15 Baso # (Auto) 0.02 Abs Immat Gran (auto) 0.05 Sodium 134 L Potassium 3.7 Chloride 96 Carbon Dioxide 33 H BUN 8 Creatinine 0.6 Estimated Creat Clear 38.44 Estimated GFR 94 Glucose 124 H Calcium 8.3 L C-Reactive Protein 13.7 H Discharge Plan Discharge Disposition: Home, Self-Care Date of Admission: 03/25/22 14:11 Attending Provider on Discharge: Pilar Santoro Primary Care Provider: Mariangel Ly Condition: Improved Anticipated Discharge Date/Time: 03/28/22 12:17 Discharge Medications: New ciprofloxacin HCl [Cipro] 500 mg tablet 500 mg PO BID Qty: 10 0RF metronidazole 500 mg tablet 500 mg PO Q12H Qty: 10 0RF tramadol 50 mg Tablet 50 mg PO Q6H PRN (Reason: Pain) Qty: 7 0RF Continued simvastatin 20 mg tablet 20 mg PO HS omeprazole 20 mg capsule,delayed release(DR/EC) 20 mg PO HS escitalopram oxalate 10 mg tablet 10 mg PO DAILY losartan-hydrochlorothiazide 100-12.5 mg tablet 1 tab PO DAILY Discharge Orders: Discharge Order (Routine); Ordered 03/28/22 Ordered By: Pilar Santoro Patient Education: General Anesthesia (DC), Laparoscopic Appendectomy (DC), Post-Operative Instructions: Appendectomy Activity Restrictions/Additional Instructions: Wound care: Your sutures are under the skin and will dissolve over time. Leave steri strips (white bandages) over incisions until they fall off (or remove after 7 days). OK to shower tomorrow but avoid bathing, soaking or swimming for 2 weeks. Pat the incisions dry. No need to wash or scrub the area. Apply ice to the area as needed for swelling. It is also OK to use a heating pad if this provides more comfort to you. Pain control: You were prescribed a pain medication. As your pain improves, you can try taking acetaminophen instead of the prescribed pain pill. Take an [id number] stool softener to help alleviate constipation. I recommend Senna and/or Colace. Take as directed on package. If you have not had a bowel movement in 3 days, try taking Miralax as directed on the package. All of these are available over the counter. Follow-up Follow up with Dr. Santoro in 2-3 weeks Please call if you are experiencing severe pain, nausea, vomiting, difficulty urinating, fever or have not had bowel movement in 4 days after surgery. If the redness around your belly button incision worsens, please call Dr. Santoro's office. Activity Level: No strenuous activity Activity Detail: No lifting more than 20 pounds for 2 weeks Discharge Diet: Regular Follow Up Appointments: Pilar Santoro MD [Staff Physician] - Mariangel Ly MD [Primary Care Provider] - Forms: [employer] Info Instructions Discharge Comments: Have patient follow-up with primary care provider in 1 week.
--- NOTE | 2022-03-28 09:15 | PM.IMPN1 ---
Progress Note: A&P Assessment and plan (1) Perforated appendicitis: Status: Acute (2) S/P laparoscopic appendectomy: Status: Acute Plan Assessment and plan (1) Perforated appendicitis: ?Status:?Acute (2) S/P laparoscopic appendectomy: ?Status:?Acute (3) Hypokalemia: ?Status:?Acute (4) Hyponatremia: ?Status:?Acute (5) Abnormal LFTs: ?Status:?Chronic (6) Hypertension: ?Status:?Chronic (7) Hyperlipidemia: ?Status:?Chronic (8) Chronic GERD: ?Status:?Chronic (9) Anxiety: ?Status:?Chronic Plan 1. Overall patient is stable. 2. Discharging today.? Time Spent With Patient Total time spent: 20 minutes Subjective Date Seen: 03/28/22 Interval history: The patient is doing well Minimal abdominal pain Denies nausea or vomiting had BM has not had breakfast yet Exam Narrative: Exam Narrative: Gen: NAD HEENT: NCAT EOMI MMM CV: RRR normal s1 s2 Lungs: CTAB Abd: soft, nt, nd Neuro: Alert, oriented; nonfocal screening exam Const: Vital Signs, click to edit/add: Vital Signs - 24 hr 03/27/22 11:00 03/27/22 15:00 03/27/22 15:00 Temperature 97.9 F 97.2 F L Pulse Rate [Right Pulse Oximeter] 70 70 69 Respiratory Rate 16 18 16 Blood Pressure [Le ft Arm] 134/63 138/70 Pulse Oximetry 96 94 Oxygen Delivery Me thod Room Air Room Air Oxygen Flow Rate 0 0 03/27/22 19:00 03/27/22 23:00 03/27/22 23:00 Temperature 97.7 F 97.2 F L Pulse Rate [Right Pulse Oximeter] 72 73 73 Respiratory Rate 16 16 16 Blood Pressure [Le ft Arm] 148/60 H 119/56 L Pulse Oximetry 95 96 Oxygen Delivery Me thod Room Air Room Air Oxygen Flow Rate 0 0 03/28/22 03:00 03/28/22 07:00 03/28/22 07:00 Temperature 97.8 F 97.8 F Pulse Rate [Right Pulse Oximeter] 69 98 71 Respiratory Rate 16 16 16 Blood Pressure [Le ft Arm] 138/68 144/71 H Pulse Oximetry 93 93 Oxygen Delivery Me thod Room Air Room Air Oxygen Flow Rate 0 0 Labs Labs: Laboratory Results - last 24 hr 03/28/22 03/28/22 06:30 06:30 WBC 7.17 RBC 4.10 Hgb 12.1 Hct 37.5 MCV 92 MCH 30 MCHC 32 RDW Coeff of Mark 13.1 Plt Count 299 Neut % (Auto) 66.9 Lymph % (Auto) 19.4 L [place] % (Auto) 10.6 Eos % (Auto) 2.1 Baso % (Auto) 0.3 Neut # (Auto) 4.80 Lymph # (Auto) 1.40 [place] # (Auto) 0.80 Eos # (Auto) 0.15 Baso # (Auto) 0.02 Abs Immat Gran (auto) 0.05 Sodium 134 L Potassium 3.7 Chloride 96 Carbon Dioxide 33 H BUN 8 Creatinine 0.6 Estimated Creat Clear 38.44 Estimated GFR 94 Glucose 124 H Calcium 8.3 L C-Reactive Protein 13.7 H
[2022-03-28] MEDS: TRAMADOL HCL 50 MG TABLET PO (09:47)
[2022-03-28] MEDS: LOSARTAN POTASSIUM 50 MG TABLET 100 MG PO (09:48)
[2022-03-28] MEDS: ENOXAPARIN 40 MG/0.4 ML INJ SUBCUT (09:48)
[2022-03-28] MEDS: ESCITALOPRAM 10 MG TABLET PO (09:48)
--- NOTE | 2022-03-28 11:56 | PC.NURSE ---
Discharge info reviewed with patient. Discussed oral ABX and ultram for pain control. Also discussed restarting Losartan/hctz combined med tomorrow 03/29 since patient did recieve dose of losartan this AM with med pass. Ultram given around 1000 and pt aware to wait 6 hours before taking another dose. IV removed and belongings form reviewed and signed.
== END 2022-03-28 12:20 | disposition home or self-care (01) | DRG 340 ==
LOC: ED 12:48 → SS 14:34 → MEDSURG 14:39 → SS 03-25 15:08 → MEDSURG 03-25 15:08
PROVIDERS: Internal Medicine; Admitting Provider Surgery; Emergency Provider Emergency Medicine Emergency Medical Services; PCP Emergency Medicine; Visit Provider Surgery
PROC: 0DTJ4ZZ Resection of Appendix, Percutaneous Endoscopic Approach (ICD-10-PCS; CPT 44970; principal; 2022-03-24 16:00)
DX: K35.33 Acute appendicitis with perforation, localized peritonitis, and gangrene, with abscess (principal); E87.6 Hypokalemia; F41.9 Anxiety disorder, unspecified; I10 Essential (primary) hypertension; R94.5 Abnormal results of liver function studies; E78.5 Hyperlipidemia, unspecified; I45.10 Unspecified right bundle-branch block; J45.909 Unspecified asthma, uncomplicated; K21.9 Gastro-esophageal reflux disease without esophagitis; K44.9 Diaphragmatic hernia without obstruction or gangrene
CPT/HCPCS: 00840; 36415; 74177; 80048; 80053; 80076; 81001; 83690; 85025; 86140; 87635; 88304; 93005; 94761; 99100; 99140; 99285; A9270; J0330; J0744; J1100; J1170; J1335; J1650; J2370; J2405; J2704; J2710; J3010; J3490; J7120; Q9967; S0030

== ENCOUNTER 2022-05-06 09:23 | Outpatient (CLI) | payer MEDICARE, SELFPAY ==
--- NOTE | 2022-05-06 10:51 | W.ANESCHARGE ---
Anesthesia Charges Start Date/Time Anesthesia Start Date: 05/06/22 Anesthesia Start Time: 10:20 Stop Date/Time Anesthesia Stop Date: 05/06/22 Anesthesia Stop Time: 10:50 Summary Emergency: Yes
--- NOTE | 2022-05-06 12:05 | W.ANESCHARGE ---
Anesthesia Charges Start Date/Time Anesthesia Start Date: 05/06/22 Anesthesia Start Time: 10:20 Stop Date/Time Anesthesia Stop Date: 05/06/22 Anesthesia Stop Time: 10:50 Summary Emergency: No Extremes of Age: Over 71-CPT [id number]
== END 2022-05-06 09:24 | disposition home or self-care (01) ==
LOC: OP CLINIC 09:24
PROVIDERS: PCP Emergency Medicine; Visit Provider Surgery
DX: K44.9 Diaphragmatic hernia without obstruction or gangrene (principal); K31.89 Other diseases of stomach and duodenum; K21.9 Gastro-esophageal reflux disease without esophagitis
CPT/HCPCS: 00731; 43239; 88305; 99100; 99140; J3490

== ENCOUNTER 2023-01-20 11:33 | Outpatient (CLI) | payer MEDICARE, SELFPAY | END 2023-01-20 11:34 | disposition home or self-care (01) | LOC: NFLDREF 01-21 10:20 | PROVIDERS: PCP Emergency Medicine; Referring Provider Emergency Medicine; Visit Provider Emergency Medicine | DX: E78.5 Hyperlipidemia, unspecified (principal); R73.01 Impaired fasting glucose; I10 Essential (primary) hypertension; F32.A Depression, unspecified; K21.9 Gastro-esophageal reflux disease without esophagitis; E87.1 Hypo-osmolality and hyponatremia; M85.80 Other specified disorders of bone density and structure, unspecified site | CPT/HCPCS: 80053; 80061; 82306 ==

== ENCOUNTER 2023-04-14 09:00 | Outpatient (CLI) | payer MEDICARE, SELFPAY | END 2023-04-14 09:01 | disposition home or self-care (01) | PROVIDERS: PCP Emergency Medicine; Visit Provider Emergency Medicine | DX: Z00.00 Encounter for general adult medical examination without abnormal findings (principal); R73.03 Prediabetes; I10 Essential (primary) hypertension; E78.5 Hyperlipidemia, unspecified; E87.1 Hypo-osmolality and hyponatremia | CPT/HCPCS: 80048; 80076 ==

== ENCOUNTER 2023-04-29 13:20 | Outpatient (CLI) | payer MEDICARE, SELFPAY | END 2023-04-29 13:21 | disposition home or self-care (01) | LOC: NFLDREF 05-01 08:29 | PROVIDERS: PCP Emergency Medicine; Referring Provider Emergency Medicine; Visit Provider Physician Assistant | DX: R30.0 Dysuria (principal); N39.0 Urinary tract infection, site not specified | CPT/HCPCS: 87086; 87186 ==

== ENCOUNTER 2023-05-12 16:05 | Emergency (ER) | payer MEDICARE, SELFPAY ==
[2023-05-12 16:10] VITALS: BP 179/77; PULSE 65; RESP 18; TEMP 36.2; O2SAT 97; BMI 29.3
--- NOTE | 2023-05-12 16:34 | ED_ITS ---
HPI - Neuro Symptoms/Deficit General Chief Complaint: Neuro Symptoms/Altered Deficit Stated Complaint: R side face numb since yesterday Time Seen by Provider: 05/12/23 16:20 History of Present Illness HPI Narrative: This 77-year-old female comes in with altered sensation and drooping of the right side of her face that began yesterday. She has difficulty closing her right eye. She does not report any altered taste sensation. These findings are only on the right side of her face and are not bilateral. She does not report any other neurologic symptoms. She does not having any hearing changes. Related Data Home Medications Medication Instructions Recorded Confirmed aspirin 81 mg tablet,delayed 81 mg PO DAILY 04/06/22 05/12/23 release coenzyme Q10 100 mg capsule 100 mg PO .Bedtime 04/06/22 05/12/23 cyanocobalamin (vitamin B-12) 1,000 mcg PO .Bedtime 04/06/22 05/12/23 1,000 mcg tablet multivitamin (Multiple Vitamins 1 tab PO QDAY 04/06/22 05/12/23 tablet) omega-3 fatty acids 1,000 mg 2,000 mg PO QDAY 04/06/22 05/12/23 capsule Previous Rx's Medication Instructions Recorded escitalopram oxalate 10 mg tablet 10 mg PO DAILY #90 tabs 01/20/23 losartan 100 1 tab PO DAILY #90 tabs 01/20/23 mg-hydrochlorothiazide 12.5 mg tablet omeprazole 20 mg capsule,delayed 20 mg PO HS #90 caps 01/20/23 release simvastatin 20 mg tablet 20 mg PO HS #90 tabs 01/20/23 epinephrine 0.3 mg/0.3 mL 0.3 mg (0.3 mL) IM ONCE #2 ea 03/15/23 injection, auto-injector methylprednisolone 4 mg tablets in See Rx Instructions PO .COMPLEX 05/12/23 a dose pack (Medrol (Eliud)) #21 ea valacyclovir 1 gram tablet 1,000 mg PO BID #14 tabs 05/12/23 (Valtrex) Allergies Allergy/AdvReac Type Severity Reaction Status Date / Time venom-wasp Allergy Intermediate Verified 05/12/23 16:17 codeine Allergy Unknown Verified 05/12/23 16:17 avocado Allergy Verified 05/12/23 16:17 erythromycin base Allergy Verified 05/12/23 16:17 penicillin G Allergy Verified 05/12/23 16:17 Sulfa (Sulfonamide Allergy Verified 05/12/23 16:17 Antibiotics) tetracycline Allergy Verified 05/12/23 16:17 cortisone AdvReac Intermediate flushing Verified 05/12/23 16:17 Review of Systems Status of ROS: Reports: 10 or more systems reviewed and unremarkable except as noted in History and below Narrative: Constitutional: No fevers, no weight gain or loss. Eyes: No discharge. No vision changes. HENT: No congestion, no sore throat, no ear pain. Cardiovascular: No chest pain, no palpitations. Respiratory: No shortness of breath, no wheezes, no cough. Gastrointestinal: No abdominal pain, no vomiting, no diarrhea. Genitourinary: No dysuria, no hematuria. Musculoskeletal: Normal range of motion. Skin: No rashes, no pruritis. Neurological: No dizziness, speech change. Right-sided facial weakness and decreased sensation as described above. Endo/Heme/Allergies: No bruising or bleeding. No polydipsia. Pysch: no suicidality, no anxiety, no insomnia. All other systems reviewed and are negative. [facility] Medical History (Updated 05/12/23 @ 16:42 by Isael Mazariegos MD) Hearing decreased ?H91.90 - Unspecified hearing loss, unspecified ear (ICD-10) Normal colonoscopy Pre-diabetes ?R73.03 - Prediabetes (ICD-10) Allergic reaction to wasp sting ?T63.461A - Toxic effect of venom of wasps, accidental (unintentional), initial encounter (ICD-10) Shortness of breath ?R06.02 - Shortness of breath (ICD-10) Elevated bilirubin ?R17 - Unspecified jaundice (ICD-10) Pre-op exam ?Z01.818 - Encounter for other preprocedural examination (ICD-10) Dysuria ?R30.0 - Dysuria (ICD-10) Chest pain ?R07.9 - Chest pain, unspecified (ICD-10) Encounter for pre-operative examination ?Z01.818 - Encounter for other preprocedural examination (ICD-10) Abnormal LFTs ?R79.89 - Other specified abnormal findings of blood chemistry (ICD-10) Anxiety ?F41.9 - Anxiety disorder, unspecified (ICD-10) Anxiety ?F41.9 - Anxiety disorder, unspecified (ICD-10) Hypertension ?I10 - Essential (primary) hypertension (ICD-10) Hyperlipidemia ?E78.5 - Hyperlipidemia, unspecified (ICD-10) Chronic GERD ?K21.9 - Gastro-esophageal reflux disease without esophagitis (ICD-10) Hiatal hernia ?K44.9 - Diaphragmatic hernia without obstruction or gangrene (ICD-10) Asthma ?J45.909 - Unspecified asthma, uncomplicated (ICD-10) Surgical History Status post total right knee replacement ?Z96.651 - Presence of right artificial knee joint (ICD-10) Status post left knee replacement ?Z96.652 - Presence of left artificial knee joint (ICD-10) S/P laparoscopic appendectomy ?Z90.49 - Acquired absence of other specified parts of digestive tract (ICD- 10) H/O breast biopsy ?Z98.890 - Other specified postprocedural states (ICD-10) H/O foot surgery ?Z98.890 - Other specified postprocedural states (ICD-10) History of knee replacement ?Z96.659 - Presence of unspecified artificial knee joint (ICD-10) Family History Mother Stroke Father FH: early coronary artery disease Hyperlipidemia Malignant neoplasm of extrahepatic bile ducts Social History Narrative: 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 She lives with her . Does not use illicit drugs Non-smoker Social alcohol use Smoking Status: Former smoker Do you use any of these nicotine containing products: None Second hand tobacco smoke exposure: No How often do you have a drink containing alcohol: monthly or less How many standard drinks containing alcohol do you have on a typical day: 1 or 2 How often do you have six or more drinks on one occasion: Less than monthly AUDIT-C Alcohol total score: 2 Non-prescribed substance use: denies use Little interest or pleasure in doing things: not at all Feeling down, depressed, or hopeless: not at all service: No Exam Narrative: Exam Narrative: Constitutional: Well-developed, well-nourished, no acute distress. HEENT: Normocephalic, atraumatic. Neck: Normal range of motion. Nontender. Supple. Heart: Regular. No murmurs. Normal rate. Intact distal pulses. Lungs: Clear to auscultation. No chest discomfort. No wheezes, rhonchi, or rales. Abdomen: Normal bowel sounds. Nontender. No rebound tenderness. Genitalia: Deferred. Back: No midline tenderness. Normal range of motion. Extremities: Normal range of motion. No injury. Skin: Intact. No rash. Warm. No erythema or pallor. Neurologic: Alert and oriented. Right-sided facial weakness involving the upper and lower face and the forehead with decreased sensation. She has difficulty closing her right eye. [id number] is normal. No pronator drift. 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 Speech is normal. She is able to ambulate normally. Psychiatric: No suicidality. No anxiety or depression. No insomnia. Nursing notes and vitals signs are reviewed. Const: Vital Signs, click to edit/add: Vital Signs - 24 hr 05/12/23 16:10 Temperature 97.2 F L Pulse Rate [Pulse Oximeter] 65 Respiratory Rate 18 Blood Pressure [Ri ght Upper Arm] 179/77 H Pulse Oximetry 97 Oxygen Delivery Me thod Room Air Course Vital Signs Vital signs: Initial Vital Signs Temperature 97.2 F L 05/12/23 16:10 Temperature Source Temporal Artery Scan 05/12/23 16:10 Pulse Rate 65 05/12/23 16:10 Respiratory Rate 18 05/12/23 16:10 Blood Pressure 179/77 H 05/12/23 16:10 Blood Pressure Mean 111 H 05/12/23 16:10 Blood Pressure Position Sitting 05/12/23 16:10 Pulse Oximetry 97 05/12/23 16:10 Oxygen Delivery Method Room Air 05/12/23 16:10 Vital Signs Temperature 97.2 F L 05/12/23 16:10 Pulse Rate 65 05/12/23 16:10 Respiratory Rate 18 05/12/23 16:10 Blood Pressure 179/77 H 05/12/23 16:10 Pulse Oximetry 97 05/12/23 16:10 Oxygen Delivery Method Room Air 05/12/23 16:10 Temperature 97.2 F L 05/12/23 16:10 Pulse Rate 65 05/12/23 16:10 Respiratory Rate 18 05/12/23 16:10 Blood Pressure 179/77 H 05/12/23 16:10 Pulse Oximetry 97 05/12/23 16:10 Oxygen Delivery Method Room Air 05/12/23 16:10 MDM - Neuro Symptoms/Deficit MDM Narrative Medical decision making narrative: This patient is presenting with right-sided facial weakness that is classic typical symptoms for Lewis's palsy. She is not showing any atypical findings with no bilateral symptoms or other neurologic deficits in her extremities. She does not have any rash. She has not had any exposures to infection. These symptoms started yesterday. I did discuss lab and imaging options with the patient and reviewed guidelines in UpToDate regarding this condition. In a process of shared decision-making she declined any further studies. The patient did received prescriptions for valacyclovir and Medrol Dosepak. I did describe signs and symptoms that would indicate a need for return and re-evaluation. I did provide an eye patch and recommended the importance of lubricating her right eye and wearing a patch at night. Discharge Plan Discharge Clinical Impression: Right-sided Lewis's palsy Patient Disposition: Home, Self-Care Condition: Unchanged Additional Instructions: Take medication as prescribed. Wear eye patch at night to prevent dry eyes. Also frequently manually blink the right eye and use eye lubricants frequently during the day. Follow up with MD return if worsening symptoms occur. Prescriptions: New valacyclovir [Valtrex] 1 gram tablet 1,000 mg PO BID Qty: 14 2RF methylprednisolone [Medrol (Eliud)] 4 mg tablets,dose pack See Rx Instructions .ROUTE .COMPLEX Qty: 21 0RF Rx Instructions: orally per package directions No Action cyanocobalamin (vitamin B-12) 1,000 mcg tablet 1,000 mcg PO .Bedtime multivitamin [Multiple Vitamins] Tablet 1 tab PO QDAY omega-3 fatty acids 1,000 mg capsule 2,000 mg PO QDAY coenzyme Q10 100 mg capsule 100 mg PO .Bedtime aspirin 81 mg tablet,delayed release (DR/EC) 81 mg PO DAILY escitalopram oxalate 10 mg tablet 10 mg PO DAILY Qty: 90 3RF omeprazole 20 mg capsule,delayed release(DR/EC) 20 mg PO HS Qty: 90 3RF simvastatin 20 mg tablet 20 mg PO HS Qty: 90 3RF losartan-hydrochlorothiazide 100-12.5 mg tablet 1 tab PO DAILY Qty: 90 3RF epinephrine 0.3 mg/0.3 mL auto-injector 0.3 mg IM ONCE Qty: 2 0RF Rx Instructions: as a single dose; may repeat once Follow Up/Referrals: Mariangel Ly MD [Primary Care Provider] - Stand Alone Forms: [facility] Info Instructions
== END 2023-05-12 16:57 | disposition home or self-care (01) ==
LOC: ED 16:54
PROVIDERS: Emergency Provider Emergency Medicine Emergency Medical Services; PCP Emergency Medicine
DX: G51.0 Bell's palsy (principal)
CPT/HCPCS: 99283; 99284

== ENCOUNTER 2024-03-02 13:48 | Outpatient (CLI) | payer MEDICARE, SELFPAY | END 2024-03-02 13:49 | disposition home or self-care (01) | LOC: NFLDREF 03-05 08:41 | PROVIDERS: PCP Emergency Medicine; Referring Provider Emergency Medicine; Visit Provider Nurse Practitioner Family | DX: N30.90 Cystitis, unspecified without hematuria (principal) | CPT/HCPCS: 87086; 87186 ==

== ENCOUNTER 2024-04-20 10:57 | Outpatient (CLI) | payer MEDICARE, SELFPAY | END 2024-04-20 10:58 | disposition home or self-care (01) | LOC: LKVREF 10:58 | PROVIDERS: PCP Emergency Medicine; Visit Provider Obstetrics & Gynecology | DX: N39.41 Urge incontinence (principal) | CPT/HCPCS: 87086; 87186 ==

== ENCOUNTER 2024-04-25 10:52 | Outpatient (CLI) | payer MEDICARE, SELFPAY ==
--- NOTE | 2024-04-25 11:15 | CRLHL7_ITS ---
For Patients: As a result of the Century Cures Act, medical imaging exams and procedure reports are released immediately into your electronic medical record. You may view this report before your referring provider. If you have questions, please contact your health care provider. INDICATION: Prolapse. TECHNIQUE: Ultrasound pelvis transabdominal and transvaginal for better assessment or to better visualize the endometrium. Real-time sonographic images with spectral and color Doppler imaging of the ovaries were obtained. COMPARISON: None. FINDINGS: Uterus: 4.9 x 1.8 x 3.8 cm. Normal echotexture of the myometrium. No masses. Prolapse evident on exam, though difficult to quantify on ultrasound. Endometrium: Transvaginal imaging was performed to better evaluate the endometrium. Endometrial thickness measures 1 mm. Trace fluid in the endometrial canal. Ovaries are not definitely visualized, though there 2 left adnexal cyst measuring 2.6 x 1.9 x 2.3 centimeters medially and the more lateral cyst measuring 3.6 x 1.6 x 2 centimeters. Cul-de-sac: No significant free fluid. IMPRESSION: Uterine prolapse is present per spectral scientist, though difficult to quantify and image on this exam. Normal appearance of the uterus with normal endometrial thickness. Trace fluid in the endometrial canal. Left adnexal cysts, without definite visualization of the left ovary (O-RADS 2). Consider repeat ultrasound to evaluate for interval change in 12 months. Dictated by Kady Black MD @ 04/26/2024 1:56:44 PM (Electronically Signed)
== END 2024-04-25 10:53 | disposition home or self-care (01) ==
LOC: US 10:52
PROVIDERS: PCP Emergency Medicine; Visit Provider Obstetrics & Gynecology
DX: N81.9 Female genital prolapse, unspecified (principal)
CPT/HCPCS: 76830; 76856

== ENCOUNTER 2024-04-27 08:10 | Outpatient (CLI) | payer MEDICARE, SELFPAY | END 2024-04-27 08:11 | disposition home or self-care (01) | LOC: NFLDREF 05-01 19:08 | PROVIDERS: PCP Emergency Medicine; Referring Provider Emergency Medicine; Visit Provider Emergency Medicine | DX: E78.2 Mixed hyperlipidemia (principal); I10 Essential (primary) hypertension; R73.03 Prediabetes | CPT/HCPCS: 80053; 80061 ==

== ENCOUNTER 2024-05-03 09:23 | Outpatient (CLI) | payer MEDICARE, SELFPAY | END 2024-05-03 09:24 | disposition home or self-care (01) | LOC: NFLDREF 09:24 | PROVIDERS: PCP Emergency Medicine; Visit Provider Obstetrics & Gynecology | DX: N83.209 Unspecified ovarian cyst, unspecified side (principal); R82.90 Unspecified abnormal findings in urine | CPT/HCPCS: 86304; 87086 ==

== ENCOUNTER 2024-05-15 10:18 | Outpatient (CLI) | payer MEDICARE, SELFPAY | END 2024-05-15 10:19 | disposition home or self-care (01) | LOC: LKVREF 10:19 | PROVIDERS: PCP Emergency Medicine; Visit Provider Emergency Medicine | DX: Z01.818 Encounter for other preprocedural examination (principal) | CPT/HCPCS: 80048 ==

== ENCOUNTER 2024-05-29 08:41 | Day surgery (SDC) | payer MEDICARE, SELFPAY ==
[2024-05-29] VITALS (22 sets, daily range): BP systolic 100–148; BP diastolic 45–71; PULSE 56–85; RESP 14–18; TEMP 36.4–37.3; O2SAT 93–98; BMI 29.1
[2024-05-29 09:34] LABS: Hemoglobin* 14.5 gm/dL (12.0-16.0)
--- NOTE | 2024-05-29 09:48 | W.PM.H&PU ---
History & Physical Update History & Physical Update H&P Reviewed and patient assessed: No changes noted
[2024-05-29] MEDS: LACTATED RINGERS 1000 ML 1,000 ML 100 ML IV (09:50)
[2024-05-29] MEDS: SODIUM CHLORIDE 0.9 % (FLUSH) 10 ML SYRINGE IVF (09:55)
[2024-05-29 10:00] LABS: Creatinine* 0.6 mg/dL (0.5-1.5); Est. Creatinine Clearance* 35.55; Estimated Glomerular Filt Rate 92 ml/min
[2024-05-29] MEDS: CLINDAMYCIN 900 MG/50 ML-D5W 900 MG/50 ML PIGGYBACK 100 MG IVPB (10:30)
[2024-05-29] MEDS: SODIUM CHLORIDE 0.9% IVPB (10:45)
[2024-05-29] MEDS: GENTAMICIN IVPB (10:45)
[2024-05-29] MEDS: LIDOCAINE 1%-EPI 1:100,000 20 ML INFILTRATI (11:07)
--- NOTE | 2024-05-29 11:21 | W.ANESCHARGE ---
Anesthesia Charges Start Date/Time Anesthesia Start Date: 05/29/24 Anesthesia Start Time: 10:26 Stop Date/Time Anesthesia Stop Date: 05/29/24 Anesthesia Stop Time: 13:42 Summary Extremes of Age - Over 70 or under 1: MDA
[2024-05-29] MEDS: 0.9 % SODIUM CHLORIDE 50 ml INJECTION (11:30)
[2024-05-29] MEDS: ESTROGENS, CONJUGATED VAGINAL 0.625 MG/G CREAM 1 APPLIC VAGINAL (13:18)
--- NOTE | 2024-05-29 13:47 | W.ANESCHARGE ---
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
--- NOTE | 2024-05-29 13:51 | W.PM.GYNPROC ---
Procedure Note Date of procedure: 05/29/24 Will [facility] bill your pro fee for this procedure?: Yes Pre-op diagnosis: Pelvic organ prolapse, persistent left ovarian cyst Post-op diagnosis: Pelvic organ prolapse, persistent left ovarian cyst, left paratubal cyst Procedure: Total Vaginal Hysterectomy, Bilateral Salpingo-oophorectomy, Anterior vaginal repair, Cystoscopy Anesthesia: GETA Complications: None Surgeon: Mahnaz Lauren MD Senior Windows Systems Engineer: Kailey Hart Estimated blood loss (mL): 50 IV fluids (mL): 1,000 Urine Output (mL): 200 Pathology: specimen obtained, sent to pathology (Uterus, bilateral fallopian tubes and ovaries) Condition: stable Disposition: floor Findings: Findings: Normal external female anatomy. Bartholin's and [place]'s glands are normal. Introitus with atrophy changes. On speculum exam, anterior vaginal wall prolapse grade 4, uterine prolapse grade 3, posterior vaginal wall prolapse grade2. On bimanual exam, uterus palpates small, no adnexal masses palpated. Stretched and extremely thin uterosacral ligaments bilaterally worse on the right side. Uterus small of about 5-6cm, right ovary and fallopian tube grossly normal. Left ovary with a small simple cyst of about 2cm. Paratubal cystic structure of about 3-4cm. Cystoscopy: No foreign objects, bilateral ureteral jet streams seen. Procedure Description: The patient was seen at the preop area, no new updates on medical history identified. Informed consent reviewed and signed. The patient was taken to the OR with IV fluid running and pneumatic compression stockings were applied to the lower extremities. General anesthesia was obtained without difficulty. The patient was placed in the dorsal lithotomy position with Emory type stirrups. Buttock was positioned slightly over the edge the table. The patient was prepped and draped in normal sterile fashion. Examination under anesthesia revealed the findings as above. العلي catheter was inserted and the bladder was emptied. A weighted speculum was placed into the vagina. The anterior and posterior lip of the cervix grasped with with a double tooth tenaculum. With outward traction applied on the tenaculum diluted Vasopressin was injected circumferentially into the cervicovaginal junction for hydrodissection purposes. Afterwards a circumferential incision was made with the scalpel at the cervical vaginal junction. Incision was carried down to the para cervical fascia, allowing the cervix to separate from the vaginal mucosa. Minimal bleeding encountered. Separation of the anterior vaginal mucosa from uterus performed bluntly with moist gauze and performed until peritoneal reflection identified, this was then picked up and entered sharply with Huerta scissors. A right angle retractor was inserted into the vesicouterine space. Attention was then placed to the posterior vagina, where blunt dissection also utilized until identification of the posterior peritoneum, this was grasped with pickups and entered sharply with Huerta scissors with the tip pointing to the uterus. Clear peritoneal fluid was noted. The weighted speculum was removed and a long Ana speculum was inserted into the cul-de-sac. The uterosacral ligaments were clamped with Jessica clamps, cut, and suture ligated. Follow-up were the cardinal ligaments. Significant uterine descent was noted, the uterine vessels were identified, clamped, and cut and suture ligated. The broad and round ligaments were then clamped, cut, and suture ligated. Finally the ovarian ligaments were clamped, cut and doubly tied. The uterus was removed through the vagina. Packing of the intestines performed utilizing multiple surgical laps and starting on the right, the right fallopian tube including the fimbrial end was grasped with Cholo,and utilizing the LigaSure Impact Bipolar device the mesosalpinx attached was clamped, coagulated and cut. Hemostasis secured. The right ovary was then identified, grasped with Cholo, this was hard and we had to place patient in deep Trendelenburg to be able to completely identify and isolate the right IP ligament, but after adequate exposure gained the right IP ligament was clamped, coagulated and cut utilizing the LigaSure Impact Bipolar device. Hemostasis secured. Same procedure was performed on the left side and removal of the left fallopian tube with attached paratubal cyst was completed first, followed by removal of the left ovary. Hemostasis secured. Examination of all of the pedicles revealed good hemostasis. There were some small bleeding identified from the vaginal edges at 3 and 9 o'clock, these areas were suture ligated with Vicryl 2-0 in a interrupted fashion. The marked uterosacral ligaments were again inspected and found as a very thin bundle of tissue, with tension I was unable to safely identify an attachment point for suspension sutures and decision was made not to pursue this part of procedure. Attention was then placed to the anterior vagina. Allis camps were placed along the midline of the anterior vaginal wall and dilute Vasopressin solution injected along the anterior vaginal wall. A vertical midline incision was then made and the vaginal epithelium was dissected from the underlying tissue using Metzenbaum scissors. Plication of the underlying vaginal muscularis and adventitia was performed using interrupted Vicryl 2-0 suture. Redundant vaginal mucosa was trimmed, and the vaginal incision was closed with Vicryl 2-0 in a interlocking fashion. The vaginal cuff including the posterior peritoneum was closed with Vicryl 0 in a continuous interlocking fashion. Marked uterosacral ligaments were attached to the vaginal angles. Cystoscopy performed with normal findings as above. Vaginal packing with Premarin was left in place. All instruments were removed from the vagina, and all counts were correct x2. The patient was taken to the recovery room in a stable condition. Patient did receive antibiotic prophylaxis with Clindamycin and Gentamicin.
[2024-05-29] MEDS: VASOPRESSIN 20 UNIT/ML INJ INJECTION (14:53)
[2024-05-29] MEDS: KETOROLAC 30 MG/ML inj IVP ×2 (17:06→22:51)
--- NOTE | 2024-05-29 22:42 | PC.NURSE ---
End of Shift: Patient pleasant and cooperative. Afebrile. Rating pain 2-3/10 and declined need for PRN pain medication. Up to chair with SBA. Tolerating regular diet with no nausea. العلي patent.
[2024-05-30 01:30] VITALS: BP 109/52; PULSE 83; RESP 16; TEMP 36.8; O2SAT 96
[2024-05-30 03:55] VITALS: BP 102/47; PULSE 69; RESP 16; TEMP 36.8; O2SAT 95
[2024-05-30] MEDS: KETOROLAC 30 MG/ML inj IVP (03:57)
[2024-05-30 06:45] LABS: Hemoglobin* 12.1 gm/dL (12.0-16.0)
[2024-05-30 07:00] LABS: Creatinine* 0.8 mg/dL (0.5-1.5); Est. Creatinine Clearance* 35.55; Estimated Glomerular Filt Rate 76 ml/min
--- NOTE | 2024-05-30 07:38 | PC.NURSE ---
Pt alert and oriented x3. Afebrile. Denies pain, chest pain, SOB, and N/V. Pt?s morales is patent and draining. Pt is up SBA with morales and tolerating a regular diet.?
[2024-05-30 08:14] VITALS: BP 117/50; PULSE 66; RESP 16; TEMP 36.7; O2SAT 98
[2024-05-30] MEDS: hydroCHLOROthiazide 12.5 MG CAPSULE PO (08:15)
[2024-05-30] MEDS: LOSARTAN POTASSIUM 50 MG TABLET 100 MG PO (08:16)
[2024-05-30] MEDS: ESCITALOPRAM 10 MG TABLET PO (08:16)
--- NOTE | 2024-05-30 11:29 | PM.GYNDS1 ---
DS: Providers Provider Time Seen by Provider: 08: Date Seen: 05/30/24 Primary care physician: Mariangel Ly Attending Physician on discharge: Aracely Lauren MD Date of Discharge: 05/30/24 DS: Diagnosis Discharge Diagnosis (1) S/P vaginal hysterectomy: Status: Acute Problem details: Total vaginal hysterectomy, bilateral salpingo-oophorectomy, anterior vaginal repair, cystoscopy CLINICAL STAFF RN-Discharge Summary Hospital Course Hospital Course Narrative: Patient is a 78 year old admitted on 05/29/2024 for elective surgery. Indication for surgery: Pelvic organ prolapse, persistent left ovarian cyst. Intraoperative findings were notable for pelvic organ prolapse, simple small left ovarian cyst, left paratubal cyst. She had an uncomplicated surgery. Postoperative course has been uneventful. Vitals have been stable. She has remained afebrile. Today, on postoperative day 1, she reports the pain is well controlled. She has been able to ambulate Without difficulty. She is tolerating regular diet. She is passing flatus. العلي catheter has been removed, and she is voiding without difficulty. Time Spent with Patient Time attestation: Total time spent providing and/or coordinating discharge services: Time spent: Less than 30 minutes CLINICAL STAFF RN - Exam Physical Exam: Vital signs: Temp Pulse Resp BP Pulse Ox O2 Del Method 98.0 F 66 16 117/50 L 98 Room Air 05/30/24 08:14 05/30/24 08:14 05/30/24 08:14 05/30/24 08:14 05/30/24 08:14 05/30/24 08:14 Narrative: VITAL SIGNS: As noted above. GENERAL APPEARANCE: Alert, cooperative female in no acute distress. MOOD & AFFECT: Normal. HEART: Regular rate and rhythm without murmurs. LUNGS: Lungs are clear to auscultation bilaterally. No crackles, wheezes, or rhonchi. ABDOMEN: Positive bowel sounds. Soft, non-distended and nontender. : Minimal spotting. EXTREMITIES: Nonedematous. Well perfused. Nontender. NEURO: Intact. CLINICAL STAFF RN - DS: Data Data Completed and Pending Completed studies during hospitalization: Procedures Resection of Appendix, Percutaneous Endoscopic Approach (03/25/22) Labs on day of discharge: Labs from last 24 hours 05/30/24 06:04 Hgb 12.1 Creatinine 0.8 Estimated Creat Clear 35.55 Estimated GFR 76 Procedures Procedures: Procedures Operation Date: 05/29/24 10:00 Actual Procedure Side Surgeon p M/S-Total Vaginal Hysterectomy, Bilateral Salpingo-Oophorectomy, Anterior Vaginal Repair, Cysotscopy Aracely Lauren MD Discharge Plan Discharge Disposition: Home w/ Parent or Adult Discharging Surgeon: Aracely Lauren Follow-Up Appointment: 2 weeks at [facility]-scheduled; 06/12 at 10:30am & 07/11 at 10:30am Prescriptions: New acetaminophen 325 mg Tablet 1,000 mg PO Q6H PRN (Reason: minor pain) Qty: 20 0RF docusate sodium 100 mg Capsule 100 mg PO BID PRN (Reason: Constipation) Qty: 30 0RF ibuprofen 600 mg Tablet 600 mg PO Q6H Qty: 30 0RF Continued cyanocobalamin (vitamin B-12) 1,000 mcg tablet 1,000 mcg PO HS multivitamin [Multiple Vitamins] Tablet 1 tab PO DAILY omega-3 fatty acids 1,000 mg capsule 2,000 mg PO DAILY coenzyme Q10 100 mg capsule 100 mg PO HS aspirin 81 mg tablet,delayed release (DR/EC) 81 mg PO DAILY epinephrine 0.3 mg/0.3 mL auto-injector 0.3 mg IM ONCE PRN Rx Instructions: as a single dose; may repeat once losartan-hydrochlorothiazide 100-12.5 mg tablet 1 tab PO DAILY Qty: 90 0RF simvastatin 20 mg tablet 20 mg PO HS Qty: 90 0RF omeprazole 20 mg capsule,delayed release(DR/EC) 20 mg PO HS Qty: 90 0RF escitalopram oxalate 10 mg tablet 10 mg PO DAILY Qty: 90 0RF Activity Level: No strenuous activity and No Weight Bearing Activity Detail: No lifting more than 15-20 pounds, nothing vaginally for 6 weeks Discharge Diet: Heart Healthy (2 gm sodium, low fat) Patient Instructions: Acetaminophen (By mouth), Ibuprofen (By mouth), Laxative, Stool Softeners (By mouth), Vaginal Hysterectomy (DC) Follow-up: Aracely Lauren MD [Staff Physician] - 06/12/24 10:30 am (2nd appointment 07/11 10:30) Mariangel Ly MD [Primary Care Provider] - Discharge Orders: Discharge Order (Routine); Ordered 05/30/24 Ordered By: Aracely Lauren
== END 2024-05-30 11:56 | disposition home or self-care (01) ==
LOC: OR 08:42 → MEDSURG 08:48
PROVIDERS: PCP Emergency Medicine; Visit Provider Obstetrics & Gynecology
PROC: 0TJB8ZZ Inspection of Bladder, Via Natural or Artificial Opening Endoscopic (ICD-10-PCS; CPT 57260; principal; 2024-05-29 10:00)
DX: N81.3 Complete uterovaginal prolapse (principal); N83.292 Other ovarian cyst, left side; N83.8 Other noninflammatory disorders of ovary, fallopian tube and broad ligament
CPT/HCPCS: 58262; 57240; 00944; 36415; 82565; 85018; 86850; 86900; 86901; 88307; 99100; A9270; J0736; J1100; J1580; J1630; J1885; J2405; J2704; J2710; J3010; J7120

== ENCOUNTER 2024-06-12 11:17 | Outpatient (CLI) | payer MEDICARE, SELFPAY | END 2024-06-12 11:18 | disposition home or self-care (01) | LOC: NFLDREF 11:17 | PROVIDERS: PCP Emergency Medicine; Visit Provider Obstetrics & Gynecology | DX: R32 Unspecified urinary incontinence (principal) | CPT/HCPCS: 87086 ==

== ENCOUNTER 2024-07-12 10:17 | Outpatient (CLI) | payer MEDICARE, SELFPAY | END 2024-07-12 10:18 | disposition home or self-care (01) | PROVIDERS: PCP Emergency Medicine; Visit Provider Emergency Medicine | DX: M81.0 Age-related osteoporosis without current pathological fracture (principal) | CPT/HCPCS: 82306; 83735 ==

== ENCOUNTER 2024-07-18 10:55 | Outpatient (CLI) | payer MEDICARE, SELFPAY | END 2024-07-18 10:56 | disposition home or self-care (01) | LOC: NFLDREF 07-19 05:19 | PROVIDERS: PCP Emergency Medicine; Referring Provider Emergency Medicine; Visit Provider Obstetrics & Gynecology | DX: R30.0 Dysuria (principal) | CPT/HCPCS: 87086 ==